=== PATIENT | male | born 1950 | race Caucasian/White ===

== ENCOUNTER 2017-11-06 03:56 | Inpatient (IN) | payer OTHER ==
[2017-11-06] MEDS: ONDANSETRON 4 MG INJ IV (04:52)
[2017-11-06] MEDS: morphine 4 MG/ML VIAL IV (04:52)
[2017-11-06] MEDS: SOD CHLORIDE 0.9% 1,000 ML IV (04:53)
[2017-11-06 04:57] LABS: WHITE BLOOD COUNT 13.5 10^3/ul (4.8-10.8)
[2017-11-06 04:57] LABS: HEMATOCRIT 25.7 % (42.0-52.0); HEMOGLOBIN 8.1 g/dl (14.0-18.0); IMMATURE GRANS #M 0.06 10^3/ul; IMMATURE GRANS % (M) 0.4 %; MEAN CORPUSCULAR HGB CONC 31.5 g/dl (32.0-37.0); MEAN CORPUSCULAR VOLUME 82.6 fl (82.0-101.0); MEAN PLATELET VOLUME 9.3 fl (7.4-10.4); PLATELET COUNT 656 10^3/UL (140-415); RED BLOOD COUNT 3.11 10^6/ul (4.70-6.10); RED CELL DISTRIBUTION WIDTH 16.6 % (11.5-14.5)
[2017-11-06 05:17] LABS: INR 0.99; PROTIME 13.2 Sec (11.9-14.9)
[2017-11-06 05:18] LABS: PARTIAL THROMBOPLASTIN TIME 36.2 Sec (25.0-35.0)
[2017-11-06 05:26] LABS: ADD MAN DIFF? YES
[2017-11-06 05:27] LABS: ALANINE AMINOTRANSFERASE 30 IU/L (13-69); ALBUMIN 3.6 g/dl (3.3-4.9); ALBUMIN/GLOBULIN RATIO 0.75; ALKALINE PHOSPHATASE 247 IU/L (42-121); ANION GAP 16 (8-16); ASPARTATE AMINO TRANSFERASE 48 IU/L (15-46); BLOOD UREA NITROGEN 11 mg/dl (7-20); CALCIUM 8.8 mg/dl (8.4-10.2); CARBON DIOXIDE 27 mmol/L (21-31); CHLORIDE 99 mmol/L (97-110); CREATININE 0.81 mg/dl (0.61-1.24); GLUCOSE 115 mg/dl (70-220); LIPASE 121 U/L (23-300); POTASSIUM 4.7 mmol/L (3.5-5.1); SODIUM 137 mmol/L (135-144); TOTAL PROTEIN 8.4 g/dl (6.1-8.1)
[2017-11-06 05:57] LABS: ADD UMIC NO; UR ASCORBIC ACID NEGATIVE (NEGATIVE); UR BILIRUBIN (Dip) NEGATIVE (NEGATIVE); UR BLOOD (Dip) NEGATIVE (NEGATIVE); UR CLARITY CLEAR (CLEAR); UR COLOR STRAW (YELLOW); UR GLUCOSE (Dip) NEGATIVE (NEGATIVE); UR KETONES (Dip) NEGATIVE (NEGATIVE); UR LEUKOCYTE ESTERASE (Dip) NEGATIVE Leu/ul (NEGATIVE); UR NITRITE (Dip) NEGATIVE (NEGATIVE); UR SPECIFIC GRAVITY (Dip) 1.006 (1.003-1.030); UR TOTAL PROTEIN (Dip) NEGATIVE (NEGATIVE); UR UROBILINOGEN (Dip) NEGATIVE (NEGATIVE)
[2017-11-06] MEDS ORDERED: ONDANSETRON 4 MG INJ IV ×2 (07:30→12:00)
[2017-11-06] MEDS ORDERED: ACETAMINOPHEN 325 MG TAB PO (07:30)
[2017-11-06] MEDS: PANTOPRAZOLE 40 MG INJ IV ×2 (10:30→10:32)
[2017-11-06 11:29] LABS: IRON 32 ug/dl (35-150)
[2017-11-06 11:38] LABS: % IRON SATURATION 8 % SAT (22-52); TOTAL IRON BINDING CAPACITY 399 ug/dl (241-421)
[2017-11-06] MEDS ORDERED: NACL 0.9% 3 ML SYG IV (12:00)
[2017-11-06 12:02] LABS: FERRITIN 61.8 ng/ml (11.1-264.0)
[2017-11-06] MEDS ORDERED: GLUCAGON 1 MG INJ IM (12:30)
[2017-11-06] MEDS ORDERED: DEXTROSE 50% 50 ML SYRINGE IV ×2 (12:30)
[2017-11-06] MEDS ORDERED: GLUCOSE GEL 15 GRAM TUBE PO ×2 (12:30)
[2017-11-06] MEDS ORDERED: GLUCOSE GEL 15 GRAM TUBE BUCCAL (12:30)
[2017-11-06 12:34] LABS: FOLATE 7.3 ng/ml (2.8-20.0)
[2017-11-06] MEDS: IOHEXOL 300MG/ML 150 ML BTL (12:59)
[2017-11-06] MEDS: SOD CHLORIDE 0.9% 100 ML (12:59)
[2017-11-06] MEDS: INSULIN ASPART [NOVOLOG] 3 ML PEN SC ×3 (13:21→21:00)
[2017-11-06] MEDS: AMLODIPINE 5 MG TAB PO (15:03)
[2017-11-06 15:35] LABS: CARCINOEMBRYONIC ANTIGEN 4.4 ng/ml (0.0-5.0)
[2017-11-06] MEDS: SOD FERRIC GLUC COMPLX 125 MG in SOD CHLORIDE 0.9% 100 ML IVPB (17:12)
[2017-11-06] MEDS: BISACODYL (EC) 5 MG TAB PO (21:16)
[2017-11-06] MEDS: POLYETHYLENE GLYCOL 3350 119 GM POWDER PO ×2 (21:16→21:26)
[2017-11-06] MEDS: MAGNESIUM CITRATE 300 ML BTL PO (21:16)
[2017-11-07] MEDS: ACCU-CHEK XX ×2 (02:00→20:32)
[2017-11-07 05:48] LABS: ADD MAN DIFF? NO
[2017-11-07 05:57] LABS: WHITE BLOOD COUNT 15.3 10^3/ul (4.8-10.8)
[2017-11-07 05:57] LABS: BASOPHIL # 0.1 10^3/ul (0.0-0.1); BASOPHILS % 0.6 % (0.0-2.0); EOSINOPHILS % 6.3 % (0.0-7.0); HEMATOCRIT 28.4 % (42.0-52.0); HEMOGLOBIN 8.9 g/dl (14.0-18.0); IMMATURE GRANS #M 0.07 10^3/ul; IMMATURE GRANS % (M) 0.5 %; LYMPHOCYTES # 2.3 10^3/ul (0.8-2.9); LYMPHOCYTES % 14.7 % (15.0-51.0); MEAN CORPUSCULAR HEMOGLOBIN 25.9 pg (29.0-33.0); MEAN CORPUSCULAR HGB CONC 31.3 g/dl (32.0-37.0); MEAN CORPUSCULAR VOLUME 82.6 fl (82.0-101.0); MEAN PLATELET VOLUME 9.8 fl (7.4-10.4); MONOCYTE # 0.9 10^3/ul (0.3-0.9); MONOCYTES % 6.1 % (0.0-11.0); NEUTROPHILS % 71.8 % (39.0-77.0); RED BLOOD COUNT 3.44 10^6/ul (4.70-6.10); RED CELL DISTRIBUTION WIDTH 16.4 % (11.5-14.5)
[2017-11-07] MEDS: PANTOPRAZOLE (EC) 40 MG TAB PO ×2 (06:02→17:10)
[2017-11-07 06:07] LABS: HEMOGLOBIN A1C 6.1 % (0-5.9)
[2017-11-07 06:08] LABS: PLATELET COUNT 741 10^3/UL (140-415)
[2017-11-07 06:25] LABS: ALANINE AMINOTRANSFERASE 29 IU/L (13-69); ALBUMIN 3.5 g/dl (3.3-4.9); ALBUMIN/GLOBULIN RATIO 0.76; ALKALINE PHOSPHATASE 249 IU/L (42-121); ANION GAP 13 (8-16); ASPARTATE AMINO TRANSFERASE 52 IU/L (15-46); BILIRUBIN,INDIRECT 0.1 mg/dl (0-1.1); BILIRUBIN,TOTAL 0.1 mg/dl (0.2-1.3); BLOOD UREA NITROGEN 7 mg/dl (7-20); CARBON DIOXIDE 29 mmol/L (21-31); CHLORIDE 96 mmol/L (97-110); CHOL/HDL RATIO 7.5 RATIO; CHOLESTEROL 143 mg/dl (100-200); CREATININE 0.71 mg/dl (0.61-1.24); GLUCOSE 110 mg/dl (70-220); HDL CHOLESTEROL 19 mg/dl (31-75); LDL CHOLESTEROL,CALCULATED 85 mg/dl; MAGNESIUM 2.1 mg/dl (1.7-2.5); PHOSPHORUS 4.7 mg/dl (2.5-4.9); POTASSIUM 4.1 mmol/L (3.5-5.1); SODIUM 134 mmol/L (135-144); TOTAL PROTEIN 8.1 g/dl (6.1-8.1); TRIGLYCERIDES 193 mg/dl (0-149)
[2017-11-07] MEDS ORDERED: PROPOFOL 200 MG INJ (07:00)
[2017-11-07] MEDS: INSULIN ASPART [NOVOLOG] 3 ML PEN SC ×4 (07:24→20:31)
[2017-11-07] MEDS: BISACODYL (EC) 5 MG TAB PO (08:28)
[2017-11-07] MEDS: AMLODIPINE 5 MG TAB PO (08:28)
[2017-11-07 08:46] LABS: OCCULT BLOOD STOOL NEGATIVE (NEGATIVE)
[2017-11-07] MEDS: SOD FERRIC GLUC COMPLX 125 MG in SOD CHLORIDE 0.9% 100 ML IVPB (16:45)
[2017-11-08] MEDS: PANTOPRAZOLE (EC) 40 MG TAB PO ×2 (05:45→18:27)
[2017-11-08 06:52] LABS: ADD MAN DIFF? NO
[2017-11-08 07:06] LABS: WHITE BLOOD COUNT 15.7 10^3/ul (4.8-10.8)
[2017-11-08 07:06] LABS: BASOPHIL # 0.1 10^3/ul (0.0-0.1); BASOPHILS % 0.5 % (0.0-2.0); EOSINOPHILS % 6.2 % (0.0-7.0); HEMATOCRIT 27.7 % (42.0-52.0); HEMOGLOBIN 8.9 g/dl (14.0-18.0); LYMPHOCYTES # 1.8 10^3/ul (0.8-2.9); LYMPHOCYTES % 11.6 % (15.0-51.0); MEAN CORPUSCULAR HEMOGLOBIN 26.1 pg (29.0-33.0); MEAN CORPUSCULAR HGB CONC 32.1 g/dl (32.0-37.0); MEAN CORPUSCULAR VOLUME 81.2 fl (82.0-101.0); MEAN PLATELET VOLUME 9.7 fl (7.4-10.4); MONOCYTE # 0.8 10^3/ul (0.3-0.9); MONOCYTES % 5.2 % (0.0-11.0); NEUTROPHIL # 11.9 10^3/ul (1.6-7.5); NEUTROPHILS % 76.1 % (39.0-77.0); PLATELET COUNT 761 10^3/UL (140-415); RED BLOOD COUNT 3.41 10^6/ul (4.70-6.10); RED CELL DISTRIBUTION WIDTH 16.7 % (11.5-14.5)
[2017-11-08] MEDS: INSULIN ASPART [NOVOLOG] 3 ML PEN SC ×4 (07:35→21:00)
[2017-11-08 07:37] LABS: ANION GAP 16 (8-16); BLOOD UREA NITROGEN 9 mg/dl (7-20); CARBON DIOXIDE 25 mmol/L (21-31); CHLORIDE 99 mmol/L (97-110); CREATININE 0.75 mg/dl (0.61-1.24); GLUCOSE 173 mg/dl (70-220); POTASSIUM 4.1 mmol/L (3.5-5.1); SODIUM 136 mmol/L (135-144)
[2017-11-08] MEDS: AMLODIPINE 5 MG TAB PO (09:00)
[2017-11-08 10:26] LABS: INR 1.01; PROTIME 13.4 Sec (11.9-14.9)
[2017-11-08] MEDS ORDERED: HEPARIN 1000 UNITS/NS (A-LINE) 1,000 ML (13:24)
[2017-11-08] MEDS ORDERED: MIDAZOLAM 1 MG/ML 2 ML INJ (13:24)
[2017-11-08] MEDS ORDERED: LIDOCAINE 1% (MDV) 20 ML INJ (13:24)
[2017-11-08] MEDS ORDERED: FENTAnyl 50 MCG/ML VIAL (13:24)
[2017-11-08] MEDS ORDERED: POLYMYXIN/BACITRACIN 1L IRRIG (13:28)
[2017-11-08] MEDS ORDERED: HEPARIN 1000 UNITS/ML 10 ML INJ (13:58)
[2017-11-08] MEDS ORDERED: SOD CHLORIDE 0.9% 500 ML (13:58)
[2017-11-08] MEDS: ACETAMINOPHEN 325 MG TAB PO ×2 (16:20→22:59)
[2017-11-08] MEDS: SOD FERRIC GLUC COMPLX 125 MG in SOD CHLORIDE 0.9% 100 ML IVPB (17:39)
[2017-11-09] MEDS: ACCU-CHEK XX (02:00)
[2017-11-09] MEDS ORDERED: DIPHENHYDRAMINE 50 MG INJ IV ×3 (06:00→14:30)
[2017-11-09] MEDS ORDERED: DEXTROSE 5% IV ×4 (06:00→14:00)
[2017-11-09] MEDS ORDERED: FLUOROURACIL IV ×3 (06:00→14:00)
[2017-11-09] MEDS ORDERED: ONDANSETRON INJ 16 MG, DEXAMETHASONE 4 MG/ML 10 MG in SOD CHLORIDE 0.9% 50 ML IVPB (06:00)
[2017-11-09] MEDS ORDERED: LEUCOVORIN CALCIUM IV (06:00)
[2017-11-09] MEDS ORDERED: OXALIPLATIN 170 MG in DEXTROSE 5% 250 ML IV (06:00)
[2017-11-09] MEDS: PANTOPRAZOLE (EC) 40 MG TAB PO ×2 (06:43→17:37)
[2017-11-09] MEDS: INSULIN ASPART [NOVOLOG] 3 ML PEN SC ×4 (07:50→20:32)
[2017-11-09] MEDS: SOD CHLORIDE 0.9% 1,000 ML IV ×2 (08:09→16:00)
[2017-11-09] MEDS: AMLODIPINE 5 MG TAB PO (08:23)
[2017-11-09] MEDS: morphine 2 MG INJ IV ×2 (08:23→19:57)
[2017-11-09 09:28] LABS: ADD MAN DIFF? NO
[2017-11-09 09:38] LABS: BASOPHIL # 0.1 10^3/ul (0.0-0.1); BASOPHILS % 0.7 % (0.0-2.0); EOSINOPHILS # 1.1 10^3/ul (0.0-0.5); EOSINOPHILS % 6.4 % (0.0-7.0); HEMATOCRIT 28.1 % (42.0-52.0); HEMOGLOBIN 8.9 g/dl (14.0-18.0); LYMPHOCYTES # 2.2 10^3/ul (0.8-2.9); LYMPHOCYTES % 13.3 % (15.0-51.0); MEAN CORPUSCULAR HEMOGLOBIN 25.8 pg (29.0-33.0); MEAN CORPUSCULAR HGB CONC 31.7 g/dl (32.0-37.0); MEAN CORPUSCULAR VOLUME 81.4 fl (82.0-101.0); MEAN PLATELET VOLUME 9.4 fl (7.4-10.4); MONOCYTE # 0.9 10^3/ul (0.3-0.9); MONOCYTES % 5.3 % (0.0-11.0); NEUTROPHIL # 12.4 10^3/ul (1.6-7.5); NEUTROPHILS % 73.9 % (39.0-77.0); PLATELET COUNT 744 10^3/UL (140-415); RED BLOOD COUNT 3.45 10^6/ul (4.70-6.10); RED CELL DISTRIBUTION WIDTH 16.7 % (11.5-14.5)
[2017-11-09 09:38] LABS: WHITE BLOOD COUNT 16.7 10^3/ul (4.8-10.8)
[2017-11-09] MEDS ORDERED: METHYLPREDNISOLONE 125 MG INJ IV (10:00)
[2017-11-09 10:02] LABS: ALANINE AMINOTRANSFERASE 26 IU/L (13-69); ALBUMIN 3.8 g/dl (3.3-4.9); ALBUMIN/GLOBULIN RATIO 0.79; ALKALINE PHOSPHATASE 211 IU/L (42-121); ANION GAP 16 (8-16); ASPARTATE AMINO TRANSFERASE 63 IU/L (15-46); BILIRUBIN,INDIRECT 0.1 mg/dl (0-1.1); BILIRUBIN,TOTAL 0.1 mg/dl (0.2-1.3); BLOOD UREA NITROGEN 10 mg/dl (7-20); CALCIUM 9.1 mg/dl (8.4-10.2); CARBON DIOXIDE 24 mmol/L (21-31); CHLORIDE 99 mmol/L (97-110); CREATININE 0.84 mg/dl (0.61-1.24); GLUCOSE 113 mg/dl (70-220); POTASSIUM 4.4 mmol/L (3.5-5.1); SODIUM 135 mmol/L (135-144); TOTAL PROTEIN 8.6 g/dl (6.1-8.1)
[2017-11-09] MEDS: ACETAMINOPHEN 325 MG TAB PO (12:14)
[2017-11-09] MEDS ORDERED: ONDANSETRON INJ 16 MG, DEXAMETHASONE 10 MG/ML 10 MG in SOD CHLORIDE 0.9% 50 ML IVPB (14:30)
[2017-11-09] MEDS: ONDANSETRON INJ 16 MG, DEXAMETHASONE 4 MG/ML 10 MG in SOD CHLORIDE 0.9% 50 ML IVPB (16:03)
[2017-11-09] MEDS: DIPHENHYDRAMINE 50 MG INJ IV (16:03)
[2017-11-09] MEDS: OXALIPLATIN 170 MG in DEXTROSE 5% 250 ML IV (16:56)
[2017-11-09] MEDS: SOD FERRIC GLUC COMPLX 125 MG in SOD CHLORIDE 0.9% 100 ML IVPB (19:23)
[2017-11-09] MEDS: DEXTROSE 5% IV ×3 (21:23→23:35)
[2017-11-09] MEDS: LEUCOVORIN CALCIUM IV (21:23)
[2017-11-09] MEDS: FLUOROURACIL IV ×2 (22:49→23:35)
[2017-11-10] MEDS: ACETAMINOPHEN 325 MG TAB PO ×3 (00:35→20:46)
[2017-11-10] MEDS: ACCU-CHEK XX (02:00)
[2017-11-10] MEDS: SOD CHLORIDE 0.9% 1,000 ML IV ×3 (02:00→22:00)
[2017-11-10 05:08] LABS: ADD MAN DIFF? NO
[2017-11-10 05:11] LABS: BASOPHILS % 0.2 % (0.0-2.0); HEMATOCRIT 29.1 % (42.0-52.0); HEMOGLOBIN 9.2 g/dl (14.0-18.0); LYMPHOCYTES # 1.6 10^3/ul (0.8-2.9); MEAN CORPUSCULAR HEMOGLOBIN 25.5 pg (29.0-33.0); MEAN CORPUSCULAR HGB CONC 31.6 g/dl (32.0-37.0); MEAN CORPUSCULAR VOLUME 80.6 fl (82.0-101.0); MEAN PLATELET VOLUME 9.5 fl (7.4-10.4); MONOCYTE # 0.3 10^3/ul (0.3-0.9); MONOCYTES % 1.9 % (0.0-11.0); NEUTROPHIL # 12.9 10^3/ul (1.6-7.5); NEUTROPHILS % 86.2 % (39.0-77.0); PLATELET COUNT 731 10^3/UL (140-415); RED BLOOD COUNT 3.61 10^6/ul (4.70-6.10); RED CELL DISTRIBUTION WIDTH 16.4 % (11.5-14.5)
[2017-11-10 05:49] LABS: ALANINE AMINOTRANSFERASE 21 IU/L (13-69); ALBUMIN 3.8 g/dl (3.3-4.9); ALBUMIN/GLOBULIN RATIO 0.82; ALKALINE PHOSPHATASE 198 IU/L (42-121); ANION GAP 17 (8-16); ASPARTATE AMINO TRANSFERASE 63 IU/L (15-46); BILIRUBIN,INDIRECT 0.1 mg/dl (0-1.1); BILIRUBIN,TOTAL 0.1 mg/dl (0.2-1.3); BLOOD UREA NITROGEN 14 mg/dl (7-20); CALCIUM 9.2 mg/dl (8.4-10.2); CARBON DIOXIDE 25 mmol/L (21-31); CHLORIDE 97 mmol/L (97-110); CREATININE 0.85 mg/dl (0.61-1.24); GLUCOSE 166 mg/dl (70-220); POTASSIUM 4.6 mmol/L (3.5-5.1); SODIUM 134 mmol/L (135-144); TOTAL PROTEIN 8.4 g/dl (6.1-8.1)
[2017-11-10] MEDS: PANTOPRAZOLE (EC) 40 MG TAB PO ×2 (06:10→19:15)
[2017-11-10] MEDS: INSULIN ASPART [NOVOLOG] 3 ML PEN SC ×4 (07:50→20:40)
[2017-11-10] MEDS: AMLODIPINE 5 MG TAB PO (09:41)
[2017-11-10] MEDS: SUCRALFATE 1 GM TAB PO ×3 (12:51→20:41)
[2017-11-10] MEDS ORDERED: ONDANSETRON INJ 16 MG, DEXAMETHASONE 10 MG/ML 10 MG in SOD CHLORIDE 0.9% 50 ML IVPB (14:30)
[2017-11-10] MEDS ORDERED: DIPHENHYDRAMINE 50 MG INJ IV (14:30)
[2017-11-10] MEDS: DOCUSATE SODIUM 100 MG CAP PO (15:49)
[2017-11-10] MEDS: SOD FERRIC GLUC COMPLX 125 MG in SOD CHLORIDE 0.9% 100 ML IVPB (17:27)
[2017-11-10] MEDS: ONDANSETRON INJ 16 MG, DEXAMETHASONE 10 MG/ML 10 MG in SOD CHLORIDE 0.9% 50 ML IVPB (23:05)
[2017-11-10] MEDS: DIPHENHYDRAMINE 50 MG INJ IV (23:28)
[2017-11-11] MEDS: DEXTROSE 5% IV (00:06)
[2017-11-11] MEDS: FLUOROURACIL IV (00:06)
[2017-11-11] MEDS: ACCU-CHEK XX (02:00)
[2017-11-11 05:18] LABS: ADD MAN DIFF? NO
[2017-11-11 05:28] LABS: WHITE BLOOD COUNT 18.7 10^3/ul (4.8-10.8)
[2017-11-11 05:28] LABS: BASOPHILS % 0.2 % (0.0-2.0); HEMATOCRIT 29.9 % (42.0-52.0); HEMOGLOBIN 9.5 g/dl (14.0-18.0); LYMPHOCYTES % 5.6 % (15.0-51.0); MEAN CORPUSCULAR HEMOGLOBIN 25.3 pg (29.0-33.0); MEAN CORPUSCULAR HGB CONC 31.8 g/dl (32.0-37.0); MEAN CORPUSCULAR VOLUME 79.7 fl (82.0-101.0); MEAN PLATELET VOLUME 9.6 fl (7.4-10.4); MONOCYTE # 0.1 10^3/ul (0.3-0.9); MONOCYTES % 0.6 % (0.0-11.0); NEUTROPHIL # 17.3 10^3/ul (1.6-7.5); NEUTROPHILS % 92.9 % (39.0-77.0); PLATELET COUNT 719 10^3/UL (140-415); RED BLOOD COUNT 3.75 10^6/ul (4.70-6.10); RED CELL DISTRIBUTION WIDTH 16.9 % (11.5-14.5)
[2017-11-11] MEDS: PANTOPRAZOLE (EC) 40 MG TAB PO ×2 (05:42→05:47)
[2017-11-11 05:58] LABS: ALANINE AMINOTRANSFERASE 26 IU/L (13-69); ALBUMIN 3.7 g/dl (3.3-4.9); ALBUMIN/GLOBULIN RATIO 0.78; ALKALINE PHOSPHATASE 194 IU/L (42-121); ANION GAP 15 (8-16); ASPARTATE AMINO TRANSFERASE 64 IU/L (15-46); BILIRUBIN,INDIRECT 0.2 mg/dl (0-1.1); BILIRUBIN,TOTAL 0.2 mg/dl (0.2-1.3); BLOOD UREA NITROGEN 17 mg/dl (7-20); CALCIUM 9.1 mg/dl (8.4-10.2); CARBON DIOXIDE 25 mmol/L (21-31); CHLORIDE 97 mmol/L (97-110); CREATININE 0.78 mg/dl (0.61-1.24); GLUCOSE 211 mg/dl (70-220); POTASSIUM 4.6 mmol/L (3.5-5.1); SODIUM 132 mmol/L (135-144); TOTAL PROTEIN 8.4 g/dl (6.1-8.1)
[2017-11-11] MEDS: AMLODIPINE 5 MG TAB PO (08:54)
[2017-11-11] MEDS: SUCRALFATE 1 GM TAB PO ×4 (08:54→20:37)
[2017-11-11] MEDS: SOD CHLORIDE 0.9% 1,000 ML IV ×2 (08:55→20:40)
[2017-11-11] MEDS: INSULIN ASPART [NOVOLOG] 3 ML PEN SC ×4 (08:58→20:38)
[2017-11-11] MEDS: morphine 2 MG INJ IV (22:03)
[2017-11-12] MEDS: ACCU-CHEK XX (02:00)
[2017-11-12] MEDS: SOD CHLORIDE 0.9% 1,000 ML IV ×3 (04:00→19:23)
[2017-11-12 05:22] LABS: ADD MAN DIFF? NO
[2017-11-12 05:25] LABS: BASOPHILS % 0.2 % (0.0-2.0); EOSINOPHILS # 0.1 10^3/ul (0.0-0.5); EOSINOPHILS % 0.3 % (0.0-7.0); HEMATOCRIT 29.1 % (42.0-52.0); HEMOGLOBIN 9.4 g/dl (14.0-18.0); LYMPHOCYTES # 2.2 10^3/ul (0.8-2.9); LYMPHOCYTES % 11.9 % (15.0-51.0); MEAN CORPUSCULAR HEMOGLOBIN 25.9 pg (29.0-33.0); MEAN CORPUSCULAR HGB CONC 32.3 g/dl (32.0-37.0); MEAN CORPUSCULAR VOLUME 80.2 fl (82.0-101.0); MEAN PLATELET VOLUME 9.6 fl (7.4-10.4); MONOCYTE # 0.7 10^3/ul (0.3-0.9); MONOCYTES % 3.7 % (0.0-11.0); NEUTROPHIL # 15.2 10^3/ul (1.6-7.5); NEUTROPHILS % 83.4 % (39.0-77.0); PLATELET COUNT 647 10^3/UL (140-415); RED BLOOD COUNT 3.63 10^6/ul (4.70-6.10)
[2017-11-12 05:25] LABS: WHITE BLOOD COUNT 18.2 10^3/ul (4.8-10.8)
[2017-11-12] MEDS: PANTOPRAZOLE (EC) 40 MG TAB PO ×2 (05:29→17:23)
[2017-11-12 05:43] LABS: ALANINE AMINOTRANSFERASE 24 IU/L (13-69); ALBUMIN 3.4 g/dl (3.3-4.9); ALBUMIN/GLOBULIN RATIO 0.75; ALKALINE PHOSPHATASE 156 IU/L (42-121); ANION GAP 13 (8-16); ASPARTATE AMINO TRANSFERASE 56 IU/L (15-46); BILIRUBIN,INDIRECT 0.2 mg/dl (0-1.1); BILIRUBIN,TOTAL 0.2 mg/dl (0.2-1.3); BLOOD UREA NITROGEN 18 mg/dl (7-20); CALCIUM 8.8 mg/dl (8.4-10.2); CARBON DIOXIDE 25 mmol/L (21-31); CHLORIDE 99 mmol/L (97-110); CREATININE 0.72 mg/dl (0.61-1.24); GLUCOSE 134 mg/dl (70-220); POTASSIUM 3.9 mmol/L (3.5-5.1); SODIUM 133 mmol/L (135-144); TOTAL PROTEIN 7.9 g/dl (6.1-8.1)
[2017-11-12] MEDS: INSULIN ASPART [NOVOLOG] 3 ML PEN SC ×4 (07:50→20:40)
[2017-11-12] MEDS: SUCRALFATE 1 GM TAB PO ×4 (09:18→20:39)
[2017-11-12] MEDS: AMLODIPINE 5 MG TAB PO (09:18)
[2017-11-12] MEDS ORDERED: morphine LIQ (10 MG/5 ML) CUP PO (15:00)
[2017-11-12] MEDS: ACETAMINOPHEN 325 MG TAB PO (20:44)
[2017-11-13] MEDS: ACCU-CHEK XX (02:00)
[2017-11-13 05:37] LABS: WHITE BLOOD COUNT 13.3 10^3/ul (4.8-10.8)
[2017-11-13 05:37] LABS: ADD MAN DIFF? NO; BASOPHIL # 0.1 10^3/ul (0.0-0.1); BASOPHILS % 0.6 % (0.0-2.0); EOSINOPHILS # 0.3 10^3/ul (0.0-0.5); EOSINOPHILS % 1.9 % (0.0-7.0); HEMATOCRIT 28.4 % (42.0-52.0); HEMOGLOBIN 8.9 g/dl (14.0-18.0); LYMPHOCYTES # 2.5 10^3/ul (0.8-2.9); LYMPHOCYTES % 18.4 % (15.0-51.0); MEAN CORPUSCULAR HEMOGLOBIN 25.3 pg (29.0-33.0); MEAN CORPUSCULAR HGB CONC 31.3 g/dl (32.0-37.0); MEAN CORPUSCULAR VOLUME 80.7 fl (82.0-101.0); MEAN PLATELET VOLUME 9.8 fl (7.4-10.4); MONOCYTE # 0.5 10^3/ul (0.3-0.9); MONOCYTES % 3.8 % (0.0-11.0); NEUTROPHIL # 9.9 10^3/ul (1.6-7.5); NEUTROPHILS % 74.7 % (39.0-77.0); PLATELET COUNT 566 10^3/UL (140-415); RED BLOOD COUNT 3.52 10^6/ul (4.70-6.10); RED CELL DISTRIBUTION WIDTH 17.5 % (11.5-14.5)
[2017-11-13] MEDS: SOD CHLORIDE 0.9% 1,000 ML IV (05:46)
[2017-11-13] MEDS: PANTOPRAZOLE (EC) 40 MG TAB PO (05:46)
[2017-11-13 05:47] LABS: ALANINE AMINOTRANSFERASE 27 IU/L (13-69); ALBUMIN 3.4 g/dl (3.3-4.9); ALBUMIN/GLOBULIN RATIO 0.77; ALKALINE PHOSPHATASE 147 IU/L (42-121); ANION GAP 13 (8-16); ASPARTATE AMINO TRANSFERASE 52 IU/L (15-46); BILIRUBIN,INDIRECT 0.1 mg/dl (0-1.1); BILIRUBIN,TOTAL 0.1 mg/dl (0.2-1.3); BLOOD UREA NITROGEN 18 mg/dl (7-20); CALCIUM 8.6 mg/dl (8.4-10.2); CARBON DIOXIDE 25 mmol/L (21-31); CHLORIDE 100 mmol/L (97-110); GLUCOSE 112 mg/dl (70-220); SODIUM 134 mmol/L (135-144); TOTAL PROTEIN 7.8 g/dl (6.1-8.1)
[2017-11-13] MEDS: ACETAMINOPHEN 325 MG TAB PO (07:41)
[2017-11-13] MEDS: AMLODIPINE 5 MG TAB PO (09:00)
[2017-11-13] MEDS: SUCRALFATE 1 GM TAB PO ×3 (09:23→17:00)
[2017-11-13] MEDS: INSULIN ASPART [NOVOLOG] 3 ML PEN SC ×2 (09:23→12:58)
== END 2017-11-13 17:20 | disposition home or self-care (01) | DRG 375 ==
LOC: E/R 03:56 → MS1 11-08 16:05 → MS3 07:30
PROVIDERS: Internal Medicine
PROC: 0JH60WZ Insertion of Totally Implantable Vascular Access Device into Chest Subcutaneous Tissue and Fascia, Open Approach (ICD-10-PCS; principal; 2017-11-07 12:28)
PROC: 02HV33Z Insertion of Infusion Device into Superior Vena Cava, Percutaneous Approach (ICD-10-PCS; 2017-11-07 12:28)
PROC: B518YZA Fluoroscopy of Superior Vena Cava using Other Contrast, Guidance (ICD-10-PCS; 2017-11-07 12:28)
PROC: 0DJD8ZZ Inspection of Lower Intestinal Tract, Via Natural or Artificial Opening Endoscopic (ICD-10-PCS; 2017-11-07 12:28)
PROC: 3E04305 Introduction of Other Antineoplastic into Central Vein, Percutaneous Approach (ICD-10-PCS; 2017-11-07 12:28)
DX: C16.9 Malignant neoplasm of stomach, unspecified (principal); K92.1 Melena; D50.9 Iron deficiency anemia, unspecified; D72.829 Elevated white blood cell count, unspecified; E11.9 Type 2 diabetes mellitus without complications; E66.9 Obesity, unspecified; I10 Essential (primary) hypertension; K64.8 Other hemorrhoids; K57.30 Diverticulosis of large intestine without perforation or abscess without bleeding; Z68.31 Body mass index [BMI] 31.0-31.9, adult; Z79.84 Long term (current) use of oral hypoglycemic drugs
CPT/HCPCS: 36415; 71260; 74176; 80048; 80053; 80061; 81003; 82270; 82378; 82607; 82728; 82746; 82962; 83036; 83540; 83690; 83735; 84100; 84443; 85025; 85610; 85730; 86850; 86900; 86901; 88305; 93306; 96361; 96374; 96375; 99285-25; J9190

== ENCOUNTER 2018-02-23 17:15 | Inpatient (IN) | payer OTHER ==
[2018-02-23 20:12] LABS: ADD MAN DIFF? NO
[2018-02-23 20:13] LABS: WHITE BLOOD COUNT 10.2 10^3/ul (4.8-10.8)
[2018-02-23 20:13] LABS: ABNORMAL IP MESSAGE 1; BASOPHILS % 0.1 % (0.0-2.0); HEMATOCRIT 18.5 % (42.0-52.0); LYMPHOCYTES # 1.4 10^3/ul (0.8-2.9); MEAN CORPUSCULAR HEMOGLOBIN 27.1 pg (29.0-33.0); MEAN CORPUSCULAR HGB CONC 31.9 g/dl (32.0-37.0); MEAN CORPUSCULAR VOLUME 84.9 fl (82.0-101.0); MEAN PLATELET VOLUME 9.9 fl (7.4-10.4); MONOCYTE # 0.3 10^3/ul (0.3-0.9); MONOCYTES % 2.9 % (0.0-11.0); NEUTROPHIL # 8.4 10^3/ul (1.6-7.5); NEUTROPHILS % 82.3 % (39.0-77.0); PLATELET COUNT 263 10^3/UL (140-415); POSITIVE DIFF @See below; RED BLOOD COUNT 2.18 10^6/ul (4.70-6.10); RED CELL DISTRIBUTION WIDTH 22.5 % (11.5-14.5)
[2018-02-23] MEDS: ONDANSETRON 4 MG INJ IV (20:19)
[2018-02-23] MEDS: SODIUM CHLORIDE 0.9% 1L BAG IV* (20:19)
[2018-02-23] MEDS: morphine 4 MG/ML VIAL IV (20:19)
[2018-02-23 20:25] LABS: HEMOGLOBIN 5.9 g/dl (14.0-18.0)
[2018-02-23 20:30] LABS: INR 1.09; PROTIME 14.3 Sec (11.9-14.9); PT RATIO 1.1
[2018-02-23 20:31] LABS: ALANINE AMINOTRANSFERASE 21 IU/L (13-69); ALBUMIN 2.9 g/dl (3.3-4.9); ALKALINE PHOSPHATASE 164 IU/L (42-121); AMYLASE 43 U/L (11-123); ANION GAP 11 (5-13); ASPARTATE AMINO TRANSFERASE 152 IU/L (15-46); BILIRUBIN,INDIRECT 0.1 mg/dl (0-1.1); BILIRUBIN,TOTAL 0.1 mg/dl (0.2-1.3); BLOOD UREA NITROGEN 68 mg/dl (7-20); CALCIUM 8.1 mg/dl (8.4-10.2); CARBON DIOXIDE 24 mmol/L (21-31); CHLORIDE 93 mmol/L (97-110); CREATININE 0.69 mg/dl (0.61-1.24); Estimated GFR > 60 mL/min (>60); GLUCOSE 168 mg/dl (70-220); LIPASE 51 U/L (23-300); POTASSIUM 5.1 mmol/L (3.5-5.1); SODIUM 128 mmol/L (135-144); TOTAL PROTEIN 6.1 g/dl (6.1-8.1)
[2018-02-23 20:33] LABS: LACTIC ACID 4.6 mmol/L (0.5-2.0)
[2018-02-23 20:42] LABS: TROPONIN-I < 0.012 ng/ml (0.000-0.120)
[2018-02-23] MEDS ORDERED: PANTOPRAZOLE IV 80 MG in SOD CHLORIDE 0.9% 100 ML IVPB (20:42)
[2018-02-23 20:44] LABS: PARTIAL THROMBOPLASTIN TIME 34.5 Sec (23.0-35.0)
[2018-02-23 20:59] LABS: ADD UMIC NO; UR ASCORBIC ACID NEGATIVE (NEGATIVE); UR BILIRUBIN (Dip) NEGATIVE (NEGATIVE); UR BLOOD (Dip) NEGATIVE (NEGATIVE); UR CLARITY CLEAR (CLEAR); UR COLOR YELLOW (YELLOW); UR GLUCOSE (Dip) NEGATIVE (NEGATIVE); UR KETONES (Dip) NEGATIVE (NEGATIVE); UR LEUKOCYTE ESTERASE (Dip) NEGATIVE Leu/ul (NEGATIVE); UR NITRITE (Dip) NEGATIVE (NEGATIVE); UR SPECIFIC GRAVITY (Dip) 1.016 (1.003-1.030); UR TOTAL PROTEIN (Dip) NEGATIVE (NEGATIVE); UR UROBILINOGEN (Dip) NEGATIVE (NEGATIVE)
[2018-02-23] MEDS: PANTOPRAZOLE 40 MG INJ IV (21:14)
[2018-02-23] MEDS: CEFEPIME 2GM/50 ML (PMX) 50 ML IVPB (21:14)
[2018-02-23] MEDS: IODIXANOL LOCM 100 ML BTL (21:33)
[2018-02-23] MEDS: SOD CHLORIDE 0.9% 100 ML (21:33)
[2018-02-23 21:59] LABS: LACTIC ACID 3.8 mmol/L (0.5-2.0)
[2018-02-23] MEDS: VANCOMYCIN 1 GM (PMX) 250 ML IVPB (22:27)
[2018-02-23] MEDS: PANTOPRAZOLE IV 80 MG in SOD CHLORIDE 0.9% 100 ML IV (22:27)
[2018-02-23] MEDS ORDERED: ACETAMINOPHEN 325 MG TAB PO (22:30)
[2018-02-23] MEDS ORDERED: ONDANSETRON 4 MG INJ IV (22:30)
[2018-02-24] MEDS ORDERED: VANCOMYCIN IV PER PHARMACY XX (00:30)
[2018-02-24] MEDS: ACETAMINOPHEN 325 MG TAB PO (03:28)
[2018-02-24] MEDS: SOD CHLORIDE 0.9% 1,000 ML IV ×2 (04:35→23:40)
[2018-02-24 04:38] LABS: IMMEDIATE SPIN CROSSMATCH 1 3
[2018-02-24] MEDS: PANTOPRAZOLE 40 MG INJ IV (06:00)
[2018-02-24] MEDS: PIPER-TAZO 3.375 GM IV (PMX) 100 ML IVPB ×4 (06:09→23:40)
[2018-02-24 08:22] LABS: ADD MAN DIFF? NO
[2018-02-24 08:27] LABS: WHITE BLOOD COUNT 8.4 10^3/ul (4.8-10.8)
[2018-02-24 08:27] LABS: BASOPHILS % 0.5 % (0.0-2.0); EOSINOPHILS % 0.2 % (0.0-7.0); HEMATOCRIT 21.8 % (42.0-52.0); HEMOGLOBIN 7.5 g/dl (14.0-18.0); LYMPHOCYTES # 1.7 10^3/ul (0.8-2.9); LYMPHOCYTES % 19.7 % (15.0-51.0); MEAN CORPUSCULAR HEMOGLOBIN 28.8 pg (29.0-33.0); MEAN CORPUSCULAR HGB CONC 34.4 g/dl (32.0-37.0); MEAN CORPUSCULAR VOLUME 83.8 fl (82.0-101.0); MEAN PLATELET VOLUME 9.5 fl (7.4-10.4); MONOCYTE # 0.3 10^3/ul (0.3-0.9); MONOCYTES % 4.1 % (0.0-11.0); NEUTROPHIL # 6.3 10^3/ul (1.6-7.5); NEUTROPHILS % 74.9 % (39.0-77.0); PLATELET COUNT 190 10^3/UL (140-415); RED CELL DISTRIBUTION WIDTH 18.7 % (11.5-14.5)
[2018-02-24 08:45] LABS: ANION GAP 3 (5-13); BLOOD UREA NITROGEN 43 mg/dl (7-20); CALCIUM 7.9 mg/dl (8.4-10.2); CARBON DIOXIDE 28 mmol/L (21-31); CHLORIDE 102 mmol/L (97-110); CREATININE 0.53 mg/dl (0.61-1.24); Estimated GFR > 60 mL/min (>60); GLUCOSE 123 mg/dl (70-220); POTASSIUM 4.1 mmol/L (3.5-5.1); SODIUM 133 mmol/L (135-144)
[2018-02-24 09:03] LABS: HEMOGLOBIN A1C 6.1 % (0-5.9)
[2018-02-24] MEDS ORDERED: VANCOMYCIN 1 GM 250 ML IVPB (10:00)
[2018-02-24] MEDS: VANCOMYCIN 1 GM 250 ML IVPB ×2 (10:42→20:49)
[2018-02-24] MEDS: SUCRALFATE 1 GM TAB PO ×4 (10:43→20:48)
[2018-02-24 10:51] LABS: IRON 85 ug/dl (35-150)
[2018-02-24 11:01] LABS: % IRON SATURATION 27 % SAT (22-52); TOTAL IRON BINDING CAPACITY 313 ug/dl (241-421)
[2018-02-24 11:24] LABS: ADD MAN DIFF? NO
[2018-02-24 11:28] LABS: WHITE BLOOD COUNT 7.7 10^3/ul (4.8-10.8)
[2018-02-24 11:28] LABS: BASOPHIL # 0.1 10^3/ul (0.0-0.1); BASOPHILS % 0.7 % (0.0-2.0); EOSINOPHILS % 0.3 % (0.0-7.0); HEMATOCRIT 21.6 % (42.0-52.0); HEMOGLOBIN 7.2 g/dl (14.0-18.0); LYMPHOCYTES # 1.1 10^3/ul (0.8-2.9); LYMPHOCYTES % 14.6 % (15.0-51.0); MEAN CORPUSCULAR HGB CONC 33.3 g/dl (32.0-37.0); MEAN PLATELET VOLUME 9.9 fl (7.4-10.4); MONOCYTE # 0.3 10^3/ul (0.3-0.9); MONOCYTES % 3.8 % (0.0-11.0); NEUTROPHIL # 6.2 10^3/ul (1.6-7.5); NEUTROPHILS % 80.1 % (39.0-77.0); NUCLEATED RED BLOOD CELLS% 0.3 /100WBC (0.0-0.0); PLATELET COUNT 187 10^3/UL (140-415); RED BLOOD COUNT 2.57 10^6/ul (4.70-6.10); RED CELL DISTRIBUTION WIDTH 19.1 % (11.5-14.5)
[2018-02-24] MEDS: HYDROCODONE/APAP (5/325) TAB PO (16:16)
[2018-02-24 17:06] LABS: ADD MAN DIFF? NO
[2018-02-24 17:07] LABS: BASOPHILS % 0.5 % (0.0-2.0); EOSINOPHILS % 0.2 % (0.0-7.0); HEMATOCRIT 23.6 % (42.0-52.0); LYMPHOCYTES # 1.4 10^3/ul (0.8-2.9); LYMPHOCYTES % 16.4 % (15.0-51.0); MEAN CORPUSCULAR HEMOGLOBIN 28.4 pg (29.0-33.0); MEAN CORPUSCULAR HGB CONC 33.9 g/dl (32.0-37.0); MEAN CORPUSCULAR VOLUME 83.7 fl (82.0-101.0); MONOCYTE # 0.4 10^3/ul (0.3-0.9); MONOCYTES % 4.9 % (0.0-11.0); NEUTROPHIL # 6.5 10^3/ul (1.6-7.5); NEUTROPHILS % 77.1 % (39.0-77.0); NUCLEATED RED BLOOD CELLS% 0.2 /100WBC (0.0-0.0); PLATELET COUNT 192 10^3/UL (140-415); RED BLOOD COUNT 2.82 10^6/ul (4.70-6.10); RED CELL DISTRIBUTION WIDTH 18.9 % (11.5-14.5)
[2018-02-24 17:07] LABS: WHITE BLOOD COUNT 8.4 10^3/ul (4.8-10.8)
[2018-02-24 22:36] LABS: ADD MAN DIFF? NO
[2018-02-24 22:41] LABS: BASOPHIL # 0.1 10^3/ul (0.0-0.1); BASOPHILS % 0.6 % (0.0-2.0); EOSINOPHILS % 0.4 % (0.0-7.0); HEMATOCRIT 22.3 % (42.0-52.0); HEMOGLOBIN 7.4 g/dl (14.0-18.0); LYMPHOCYTES # 1.9 10^3/ul (0.8-2.9); LYMPHOCYTES % 22.5 % (15.0-51.0); MEAN CORPUSCULAR HGB CONC 33.2 g/dl (32.0-37.0); MEAN CORPUSCULAR VOLUME 84.5 fl (82.0-101.0); MEAN PLATELET VOLUME 9.3 fl (7.4-10.4); MONOCYTE # 0.5 10^3/ul (0.3-0.9); MONOCYTES % 5.7 % (0.0-11.0); NEUTROPHIL # 5.8 10^3/ul (1.6-7.5); NEUTROPHILS % 69.9 % (39.0-77.0); PLATELET COUNT 169 10^3/UL (140-415); RED BLOOD COUNT 2.64 10^6/ul (4.70-6.10); RED CELL DISTRIBUTION WIDTH 19.5 % (11.5-14.5)
[2018-02-24 22:41] LABS: WHITE BLOOD COUNT 8.2 10^3/ul (4.8-10.8)
[2018-02-25] MEDS: PANTOPRAZOLE 40 MG INJ IV (05:24)
[2018-02-25] MEDS: PIPER-TAZO 3.375 GM IV (PMX) 100 ML IVPB ×3 (05:25→17:48)
[2018-02-25] MEDS: SUCRALFATE 1 GM TAB PO ×4 (08:16→20:04)
[2018-02-25 08:32] LABS: ADD MAN DIFF? NO
[2018-02-25 08:34] LABS: WHITE BLOOD COUNT 6.7 10^3/ul (4.8-10.8)
[2018-02-25 08:35] LABS: BASOPHIL # 0.1 10^3/ul (0.0-0.1); EOSINOPHILS % 0.6 % (0.0-7.0); HEMATOCRIT 20.9 % (42.0-52.0); HEMOGLOBIN 7.2 g/dl (14.0-18.0); LYMPHOCYTES # 1.5 10^3/ul (0.8-2.9); LYMPHOCYTES % 22.8 % (15.0-51.0); MEAN CORPUSCULAR HEMOGLOBIN 28.7 pg (29.0-33.0); MEAN CORPUSCULAR HGB CONC 34.4 g/dl (32.0-37.0); MEAN CORPUSCULAR VOLUME 83.3 fl (82.0-101.0); MEAN PLATELET VOLUME 9.7 fl (7.4-10.4); MONOCYTE # 0.4 10^3/ul (0.3-0.9); NEUTROPHIL # 4.6 10^3/ul (1.6-7.5); NEUTROPHILS % 68.9 % (39.0-77.0); PLATELET COUNT 161 10^3/UL (140-415); RED BLOOD COUNT 2.51 10^6/ul (4.70-6.10); RED CELL DISTRIBUTION WIDTH 19.4 % (11.5-14.5)
[2018-02-25 08:56] LABS: ALBUMIN 2.8 g/dl (3.3-4.9); ANION GAP 5 (5-13); BLOOD UREA NITROGEN 14 mg/dl (7-20); CARBON DIOXIDE 28 mmol/L (21-31); CHLORIDE 99 mmol/L (97-110); CREATININE 0.46 mg/dl (0.61-1.24); GLUCOSE 121 mg/dl (70-220); PHOSPHORUS 2.7 mg/dl (2.5-4.9); POTASSIUM 3.4 mmol/L (3.5-5.1); SODIUM 132 mmol/L (135-144)
[2018-02-25 09:11] LABS: MAGNESIUM 1.6 mg/dl (1.7-2.5); VANCOMYCIN,TROUGH 7.5 ug/ml (10.0-20.0)
[2018-02-25] MEDS: VANCOMYCIN 1 GM 250 ML IVPB (09:15)
[2018-02-25] MEDS: NYSTATIN SUSP 5 ML CUP PO ×3 (13:00→20:04)
[2018-02-25] MEDS: MAGNESIUM OXIDE 400 MG TAB PO (14:58)
[2018-02-25] MEDS: POTASSIUM CHLORIDE (SR) 20 MEQ TAB PO (14:59)
[2018-02-25] MEDS: FLUCONAZOLE 200 MG (PMX) 100 ML IVPB (15:22)
[2018-02-25] MEDS: SOD CHLORIDE 0.9% 1,000 ML IV (15:23)
[2018-02-25] MEDS: SOD CHLORIDE 0.9% 250 ML IV* (15:23)
[2018-02-25] MEDS: VANCOMYCIN 1.5 GM in SOD CHLORIDE 0.9% 250 ML IVPB (20:07)
[2018-02-26 05:21] LABS: ADD MAN DIFF? NO
[2018-02-26 05:24] LABS: WHITE BLOOD COUNT 6.4 10^3/ul (4.8-10.8)
[2018-02-26 05:24] LABS: BASOPHIL # 0.1 10^3/ul (0.0-0.1); BASOPHILS % 0.9 % (0.0-2.0); EOSINOPHILS # 0.1 10^3/ul (0.0-0.5); EOSINOPHILS % 1.6 % (0.0-7.0); HEMATOCRIT 23.9 % (42.0-52.0); LYMPHOCYTES # 1.7 10^3/ul (0.8-2.9); LYMPHOCYTES % 26.1 % (15.0-51.0); MEAN CORPUSCULAR HEMOGLOBIN 28.5 pg (29.0-33.0); MEAN CORPUSCULAR HGB CONC 33.5 g/dl (32.0-37.0); MEAN CORPUSCULAR VOLUME 85.1 fl (82.0-101.0); MEAN PLATELET VOLUME 10.9 fl (7.4-10.4); MONOCYTE # 0.5 10^3/ul (0.3-0.9); NEUTROPHILS % 62.8 % (39.0-77.0); NUCLEATED RED BLOOD CELLS% 0.3 /100WBC (0.0-0.0); PLATELET COUNT 181 10^3/UL (140-415); RED BLOOD COUNT 2.81 10^6/ul (4.70-6.10); RED CELL DISTRIBUTION WIDTH 18.6 % (11.5-14.5)
[2018-02-26] MEDS: PANTOPRAZOLE 40 MG INJ IV (05:36)
[2018-02-26] MEDS: SOD CHLORIDE 0.9% 1,000 ML IV ×2 (05:36→23:10)
[2018-02-26] MEDS: PIPER-TAZO 3.375 GM IV (PMX) 100 ML IVPB ×4 (05:36→17:18)
[2018-02-26 05:41] LABS: ANION GAP 5 (5-13); BLOOD UREA NITROGEN 9 mg/dl (7-20); CALCIUM 7.6 mg/dl (8.4-10.2); CARBON DIOXIDE 26 mmol/L (21-31); CHLORIDE 100 mmol/L (97-110); CREATININE 0.48 mg/dl (0.61-1.24); Estimated GFR > 60 mL/min (>60); GLUCOSE 101 mg/dl (70-220); MAGNESIUM 1.6 mg/dl (1.7-2.5); PHOSPHORUS 2.4 mg/dl (2.5-4.9); POTASSIUM 3.7 mmol/L (3.5-5.1); SODIUM 131 mmol/L (135-144)
[2018-02-26] MEDS: SOD PHOS MONO/DIBAS 250 MG TAB PO (08:21)
[2018-02-26] MEDS: NYSTATIN SUSP 5 ML CUP PO ×4 (08:21→20:33)
[2018-02-26] MEDS: SUCRALFATE 1 GM TAB PO ×4 (08:22→20:33)
[2018-02-26] MEDS: MAGNESIUM SULFATE 2 GM/50 ML 50 ML IVPB (08:22)
[2018-02-26] MEDS: VANCOMYCIN 1.5 GM in SOD CHLORIDE 0.9% 250 ML IVPB ×2 (09:33→20:33)
[2018-02-26] MEDS: HYDROCODONE/APAP (5/325) TAB PO (11:31)
[2018-02-26] MEDS: FLUCONAZOLE 100 MG TAB PO (18:48)
[2018-02-27] MEDS: SOD CHLORIDE 0.9% 1,000 ML IV ×2 (00:12→15:50)
[2018-02-27] MEDS: PIPER-TAZO 3.375 GM IV (PMX) 100 ML IVPB ×3 (00:12→13:11)
[2018-02-27] MEDS: HYDROCODONE/APAP (5/325) TAB PO ×4 (00:18→20:27)
[2018-02-27] MEDS: PANTOPRAZOLE 40 MG INJ IV (05:45)
[2018-02-27 07:25] LABS: ADD MAN DIFF? NO
[2018-02-27 07:33] LABS: BASOPHIL # 0.1 10^3/ul (0.0-0.1); BASOPHILS % 0.9 % (0.0-2.0); EOSINOPHILS # 0.2 10^3/ul (0.0-0.5); EOSINOPHILS % 2.2 % (0.0-7.0); HEMATOCRIT 23.3 % (42.0-52.0); HEMOGLOBIN 7.8 g/dl (14.0-18.0); LYMPHOCYTES # 1.8 10^3/ul (0.8-2.9); MEAN CORPUSCULAR HGB CONC 33.5 g/dl (32.0-37.0); MEAN CORPUSCULAR VOLUME 86.6 fl (82.0-101.0); MEAN PLATELET VOLUME 10.1 fl (7.4-10.4); MONOCYTE # 0.7 10^3/ul (0.3-0.9); MONOCYTES % 7.9 % (0.0-11.0); NEUTROPHIL # 6.2 10^3/ul (1.6-7.5); NUCLEATED RED BLOOD CELLS% 0.2 /100WBC (0.0-0.0); PLATELET COUNT 186 10^3/UL (140-415); RED BLOOD COUNT 2.69 10^6/ul (4.70-6.10); RED CELL DISTRIBUTION WIDTH 18.6 % (11.5-14.5)
[2018-02-27 08:00] LABS: MAGNESIUM 1.9 mg/dl (1.7-2.5)
[2018-02-27 08:02] LABS: ALANINE AMINOTRANSFERASE 16 IU/L (13-69); ALBUMIN 2.6 g/dl (3.3-4.9); ALBUMIN/GLOBULIN RATIO 0.76; ALKALINE PHOSPHATASE 183 IU/L (42-121); ANION GAP 4 (5-13); ASPARTATE AMINO TRANSFERASE 90 IU/L (15-46); BILIRUBIN,INDIRECT 0.4 mg/dl (0-1.1); BILIRUBIN,TOTAL 0.4 mg/dl (0.2-1.3); BLOOD UREA NITROGEN 8 mg/dl (7-20); CALCIUM 7.9 mg/dl (8.4-10.2); CARBON DIOXIDE 26 mmol/L (21-31); CHLORIDE 101 mmol/L (97-110); CREATININE 0.96 mg/dl (0.61-1.24); Estimated GFR > 60 mL/min (>60); GLUCOSE 101 mg/dl (70-220); POTASSIUM 3.4 mmol/L (3.5-5.1); SODIUM 131 mmol/L (135-144)
[2018-02-27 08:09] LABS: VANCOMYCIN,TROUGH 18.9 ug/ml (10.0-20.0)
[2018-02-27] MEDS: NYSTATIN SUSP 5 ML CUP PO ×4 (09:29→20:27)
[2018-02-27] MEDS: SUCRALFATE 1 GM TAB PO ×4 (09:29→20:27)
[2018-02-27] MEDS: FLUCONAZOLE 100 MG TAB PO (09:29)
[2018-02-27] MEDS: VANCOMYCIN 1.25 GM in SOD CHLORIDE 0.9% 250 ML IVPB (09:30)
[2018-02-27] MEDS: POTASSIUM CHLORIDE (SR) 20 MEQ TAB PO (10:13)
[2018-02-27] MEDS: SOD FERRIC GLUC COMPLX 125 MG in SOD CHLORIDE 0.9% 100 ML IVPB (18:02)
[2018-02-27] MEDS ORDERED: ONDANSETRON 4 MG INJ IV (18:30)
[2018-02-28] MEDS: HYDROCODONE/APAP (5/325) TAB PO ×4 (00:50→21:59)
[2018-02-28] MEDS: SOD CHLORIDE 0.9% 1,000 ML IV ×2 (00:59→08:30)
[2018-02-28] MEDS ORDERED: VANCOMYCIN 1.25 GM in SOD CHLORIDE 0.9% 250 ML IVPB (01:00)
[2018-02-28 05:29] LABS: ADD MAN DIFF? NO
[2018-02-28 05:32] LABS: WHITE BLOOD COUNT 9.2 10^3/ul (4.8-10.8)
[2018-02-28 05:32] LABS: BASOPHIL # 0.1 10^3/ul (0.0-0.1); BASOPHILS % 0.8 % (0.0-2.0); EOSINOPHILS # 0.3 10^3/ul (0.0-0.5); EOSINOPHILS % 2.8 % (0.0-7.0); HEMATOCRIT 24.7 % (42.0-52.0); HEMOGLOBIN 8.1 g/dl (14.0-18.0); LYMPHOCYTES # 1.8 10^3/ul (0.8-2.9); LYMPHOCYTES % 19.3 % (15.0-51.0); MEAN CORPUSCULAR HEMOGLOBIN 28.9 pg (29.0-33.0); MEAN CORPUSCULAR HGB CONC 32.8 g/dl (32.0-37.0); MEAN CORPUSCULAR VOLUME 88.2 fl (82.0-101.0); MONOCYTE # 0.8 10^3/ul (0.3-0.9); MONOCYTES % 8.2 % (0.0-11.0); NEUTROPHIL # 6.2 10^3/ul (1.6-7.5); PLATELET COUNT 226 10^3/UL (140-415); RED CELL DISTRIBUTION WIDTH 19.1 % (11.5-14.5)
[2018-02-28 05:53] LABS: ANION GAP 6 (5-13); BLOOD UREA NITROGEN 8 mg/dl (7-20); CALCIUM 8.2 mg/dl (8.4-10.2); CARBON DIOXIDE 25 mmol/L (21-31); CHLORIDE 101 mmol/L (97-110); CREATININE 0.81 mg/dl (0.61-1.24); Estimated GFR > 60 mL/min (>60); GLUCOSE 93 mg/dl (70-220); MAGNESIUM 1.7 mg/dl (1.7-2.5); PHOSPHORUS 3.3 mg/dl (2.5-4.9); POTASSIUM 3.9 mmol/L (3.5-5.1); SODIUM 132 mmol/L (135-144)
[2018-02-28] MEDS: LEVOFLOXACIN 500 MG TAB PO (06:28)
[2018-02-28] MEDS: PANTOPRAZOLE (EC) 40 MG TAB PO (06:28)
[2018-02-28] MEDS: SUCRALFATE 1 GM TAB PO ×4 (08:57→21:56)
[2018-02-28] MEDS: NYSTATIN SUSP 5 ML CUP PO ×4 (08:58→21:59)
[2018-02-28] MEDS: FLUCONAZOLE 100 MG TAB PO (08:58)
[2018-02-28] MEDS: SOD FERRIC GLUC COMPLX 125 MG in SOD CHLORIDE 0.9% 100 ML IVPB (17:50)
[2018-03-01] MEDS: LEVOFLOXACIN 500 MG TAB PO (05:43)
[2018-03-01] MEDS: PANTOPRAZOLE (EC) 40 MG TAB PO (05:43)
[2018-03-01 05:58] LABS: ADD MAN DIFF? NO
[2018-03-01 06:01] LABS: BASOPHILS % 0.5 % (0.0-2.0); EOSINOPHILS # 0.2 10^3/ul (0.0-0.5); EOSINOPHILS % 2.4 % (0.0-7.0); HEMATOCRIT 23.3 % (42.0-52.0); HEMOGLOBIN 7.8 g/dl (14.0-18.0); LYMPHOCYTES # 1.7 10^3/ul (0.8-2.9); MEAN CORPUSCULAR HEMOGLOBIN 29.1 pg (29.0-33.0); MEAN CORPUSCULAR HGB CONC 33.5 g/dl (32.0-37.0); MEAN CORPUSCULAR VOLUME 86.9 fl (82.0-101.0); MONOCYTE # 0.9 10^3/ul (0.3-0.9); MONOCYTES % 10.7 % (0.0-11.0); NEUTROPHIL # 5.6 10^3/ul (1.6-7.5); NEUTROPHILS % 65.8 % (39.0-77.0); NUCLEATED RED BLOOD CELLS% 0.2 /100WBC (0.0-0.0); PLATELET COUNT 228 10^3/UL (140-415); RED BLOOD COUNT 2.68 10^6/ul (4.70-6.10); RED CELL DISTRIBUTION WIDTH 19.1 % (11.5-14.5)
[2018-03-01 06:01] LABS: WHITE BLOOD COUNT 8.5 10^3/ul (4.8-10.8)
[2018-03-01 06:33] LABS: ANION GAP 6 (5-13); BLOOD UREA NITROGEN 6 mg/dl (7-20); CALCIUM 8.2 mg/dl (8.4-10.2); CARBON DIOXIDE 26 mmol/L (21-31); CHLORIDE 97 mmol/L (97-110); CREATININE 0.76 mg/dl (0.61-1.24); Estimated GFR > 60 mL/min (>60); GLUCOSE 94 mg/dl (70-220); MAGNESIUM 1.6 mg/dl (1.7-2.5); PHOSPHORUS 3.3 mg/dl (2.5-4.9); POTASSIUM 3.2 mmol/L (3.5-5.1); SODIUM 129 mmol/L (135-144)
[2018-03-01] MEDS: HYDROCODONE/APAP (5/325) TAB PO (07:52)
[2018-03-01] MEDS: SUCRALFATE 1 GM TAB PO ×2 (08:40→12:13)
[2018-03-01] MEDS: FLUCONAZOLE 100 MG TAB PO (08:40)
[2018-03-01] MEDS: NYSTATIN SUSP 5 ML CUP PO ×2 (08:41→12:15)
[2018-03-01] MEDS: POTASSIUM CHLORIDE (SR) 20 MEQ TAB PO ×2 (10:13→12:14)
[2018-03-01] MEDS: MAGNESIUM SULFATE 2 GM/50 ML 50 ML IVPB (10:23)
[2018-03-01] MEDS: HEPARIN (100 UNITS/ML) 5 ML SYG CATHETER (16:34)
== END 2018-03-01 17:10 | disposition home or self-care (01) | DRG 853 ==
LOC: E/R 17:15 → ICU 02-24 00:06 → 2NE 02-26 12:50 → 6WM 02-24 13:38
PROVIDERS: Pediatrics
PROC: 06H03DZ Insertion of Intraluminal Device into Inferior Vena Cava, Percutaneous Approach (ICD-10-PCS; principal; 2018-02-25 13:30)
PROC: 30233N1 Transfusion of Nonautologous Red Blood Cells into Peripheral Vein, Percutaneous Approach (ICD-10-PCS; 2018-02-25 13:30)
DX: A41.9 Sepsis, unspecified organism (principal); R65.21 Severe sepsis with septic shock; J18.9 Pneumonia, unspecified organism; I26.99 Other pulmonary embolism without acute cor pulmonale; B37.0 Candidal stomatitis; E87.1 Hypo-osmolality and hyponatremia; J98.11 Atelectasis; C79.9 Secondary malignant neoplasm of unspecified site; C16.1 Malignant neoplasm of fundus of stomach; D63.0 Anemia in neoplastic disease; D64.81 Anemia due to antineoplastic chemotherapy; D50.9 Iron deficiency anemia, unspecified; E11.9 Type 2 diabetes mellitus without complications; E87.8 Other disorders of electrolyte and fluid balance, not elsewhere classified; E86.1 Hypovolemia; I95.9 Hypotension, unspecified; I10 Essential (primary) hypertension; Z79.84 Long term (current) use of oral hypoglycemic drugs
CPT/HCPCS: 36430; 37191; 71045; 71275; 73610; 74176; 75940; 80048; 80053; 80069; 80202; 81003; 82150; 82728; 83036; 83540; 83605; 83690; 83735; 84100; 84443; 84484; 85025; 85610; 85730; 86850; 86900; 86901; 86920; 87040; 87081; 87086; 93005; 93306; 93970; 96374; 96375; 97110; 97116; 97161; 97166; 97530; 97535; 99291-25

== ENCOUNTER 2018-03-12 20:45 | Inpatient (IN) | payer OTHER ==
[2018-03-13] MEDS: SOD CHLORIDE 0.9% 500 ML IV (01:24)
[2018-03-13 01:25] LABS: ADD MAN DIFF? NO
[2018-03-13 01:26] LABS: WHITE BLOOD COUNT 6.2 10^3/ul (4.8-10.8)
[2018-03-13 01:26] LABS: ABNORMAL IP MESSAGE 1; BASOPHILS % 0.2 % (0.0-2.0); LYMPHOCYTES # 0.3 10^3/ul (0.8-2.9); MEAN CORPUSCULAR HEMOGLOBIN 30.3 pg (29.0-33.0); MEAN CORPUSCULAR HGB CONC 30.7 g/dl (32.0-37.0); MEAN CORPUSCULAR VOLUME 98.6 fl (82.0-101.0); MEAN PLATELET VOLUME 10.7 fl (7.4-10.4); MONOCYTE # 0.9 10^3/ul (0.3-0.9); MONOCYTES % 14.4 % (0.0-11.0); NEUTROPHIL # 4.9 10^3/ul (1.6-7.5); NEUTROPHILS % 78.9 % (39.0-77.0); NUCLEATED RED BLOOD CELLS% 0.6 /100WBC (0.0-0.0); PLATELET COUNT 160 10^3/UL (140-415); POSITIVE DIFF @See below; RED BLOOD COUNT 1.42 10^6/ul (4.70-6.10); RED CELL DISTRIBUTION WIDTH 22.4 % (11.5-14.5)
[2018-03-13 01:50] LABS: HEMOGLOBIN 4.3 g/dl (14.0-18.0)
[2018-03-13 01:58] LABS: ALANINE AMINOTRANSFERASE 18 IU/L (13-69); ALBUMIN 2.9 g/dl (3.3-4.9); ALBUMIN/GLOBULIN RATIO 0.82; ANION GAP 8 (5-13); ASPARTATE AMINO TRANSFERASE 134 IU/L (15-46); BILIRUBIN,INDIRECT 0.2 mg/dl (0-1.1); BILIRUBIN,TOTAL 0.2 mg/dl (0.2-1.3); BLOOD UREA NITROGEN 34 mg/dl (7-20); CALCIUM 8.3 mg/dl (8.4-10.2); CARBON DIOXIDE 27 mmol/L (21-31); CHLORIDE 96 mmol/L (97-110); CREATININE 0.76 mg/dl (0.61-1.24); Estimated GFR > 60 mL/min (>60); GLUCOSE 176 mg/dl (70-220); POTASSIUM 4.2 mmol/L (3.5-5.1); SODIUM 131 mmol/L (135-144); TOTAL PROTEIN 6.4 g/dl (6.1-8.1)
[2018-03-13 02:09] LABS: B-TYPE NATRIURETIC PEPTIDE 1620 PG/ML (0-125); TROPONIN-I < 0.012 ng/ml (0.000-0.120)
[2018-03-13 02:19] LABS: ALKALINE PHOSPHATASE 212 IU/L (42-121)
[2018-03-13 04:05] LABS: ADD UMIC NO; UR ASCORBIC ACID NEGATIVE (NEGATIVE); UR BILIRUBIN (Dip) NEGATIVE (NEGATIVE); UR BLOOD (Dip) NEGATIVE (NEGATIVE); UR CLARITY CLEAR (CLEAR); UR COLOR YELLOW (YELLOW); UR GLUCOSE (Dip) NEGATIVE (NEGATIVE); UR KETONES (Dip) NEGATIVE (NEGATIVE); UR LEUKOCYTE ESTERASE (Dip) NEGATIVE Leu/ul (NEGATIVE); UR NITRITE (Dip) NEGATIVE (NEGATIVE); UR SPECIFIC GRAVITY (Dip) 1.017 (1.003-1.030); UR TOTAL PROTEIN (Dip) NEGATIVE (NEGATIVE); UR UROBILINOGEN (Dip) 1+ mg/dL (NEGATIVE)
[2018-03-13] MEDS ORDERED: ONDANSETRON 4 MG INJ IV (05:00)
[2018-03-13] MEDS ORDERED: NACL 0.9% 3 ML SYG IV (05:00)
[2018-03-13] MEDS: PANTOPRAZOLE (EC) 40 MG TAB PO (06:47)
[2018-03-13] MEDS: PANTOPRAZOLE 40 MG INJ IV ×2 (07:43→17:19)
[2018-03-13] MEDS: SUCRALFATE 1 GM TAB PO ×4 (08:18→20:54)
[2018-03-13] MEDS: metFORMIN 500 MG TAB PO ×2 (08:19→17:21)
[2018-03-13] MEDS: AMLODIPINE 5 MG TAB PO (08:19)
[2018-03-13 10:20] LABS: IMMEDIATE SPIN CROSSMATCH 1 9
[2018-03-13] MEDS: SOD CHLORIDE 0.9% 250 ML IV* (15:46)
[2018-03-13 16:46] LABS: HEMATOCRIT 15.4 % (42.0-52.0)
[2018-03-13 16:54] LABS: HEMOGLOBIN 4.9 g/dl (14.0-18.0)
[2018-03-13] MEDS: ACETAMINOPHEN 325 MG TAB PO (17:20)
[2018-03-14] MEDS: ACETAMINOPHEN 325 MG TAB PO (04:00)
[2018-03-14 05:25] LABS: ADD MAN DIFF? NO
[2018-03-14 05:35] LABS: ABNORMAL IP MESSAGE 1; BASOPHILS % 0.2 % (0.0-2.0); EOSINOPHILS % 0.3 % (0.0-7.0); HEMATOCRIT 17.8 % (42.0-52.0); LYMPHOCYTES # 0.3 10^3/ul (0.8-2.9); LYMPHOCYTES % 4.6 % (15.0-51.0); MEAN CORPUSCULAR HEMOGLOBIN 31.4 pg (29.0-33.0); MEAN CORPUSCULAR HGB CONC 33.1 g/dl (32.0-37.0); MEAN CORPUSCULAR VOLUME 94.7 fl (82.0-101.0); MEAN PLATELET VOLUME 11.3 fl (7.4-10.4); MONOCYTE # 0.8 10^3/ul (0.3-0.9); MONOCYTES % 13.6 % (0.0-11.0); NEUTROPHIL # 4.8 10^3/ul (1.6-7.5); NEUTROPHILS % 79.6 % (39.0-77.0); NUCLEATED RED BLOOD CELLS # 0.1 10^3/ul (0.0-0.0); NUCLEATED RED BLOOD CELLS% 1.8 /100WBC (0.0-0.0); PLATELET COUNT 128 10^3/UL (140-415); POSITIVE DIFF @See below; RED BLOOD COUNT 1.88 10^6/ul (4.70-6.10)
[2018-03-14 05:35] LABS: WHITE BLOOD COUNT 6.1 10^3/ul (4.8-10.8)
[2018-03-14 05:42] LABS: HEMOGLOBIN 5.9 g/dl (14.0-18.0)
[2018-03-14] MEDS: PANTOPRAZOLE 40 MG INJ IV ×2 (05:46→17:35)
[2018-03-14 05:52] LABS: ANION GAP 6 (5-13); BLOOD UREA NITROGEN 25 mg/dl (7-20); CALCIUM 8.1 mg/dl (8.4-10.2); CARBON DIOXIDE 26 mmol/L (21-31); CHLORIDE 100 mmol/L (97-110); CREATININE 0.57 mg/dl (0.61-1.24); Estimated GFR > 60 mL/min (>60); GLUCOSE 122 mg/dl (70-220); MAGNESIUM 1.7 mg/dl (1.7-2.5); PHOSPHORUS 3.6 mg/dl (2.5-4.9); POTASSIUM 3.9 mmol/L (3.5-5.1); SODIUM 132 mmol/L (135-144)
[2018-03-14] MEDS: SUCRALFATE 1 GM TAB PO ×3 (08:35→17:35)
[2018-03-14] MEDS: metFORMIN 500 MG TAB PO ×2 (08:35→17:35)
[2018-03-14] MEDS: AMLODIPINE 5 MG TAB PO (08:36)
[2018-03-14] MEDS: SOD CHLORIDE 0.9% 250 ML IV* (10:07)
== END 2018-03-14 18:23 | disposition home or self-care (01) | DRG 812 ==
LOC: E/R 20:45 → 6WM 03-13 02:57
PROVIDERS: Pediatrics Neonatal-Perinatal Medicine
PROC: 30233N1 Transfusion of Nonautologous Red Blood Cells into Peripheral Vein, Percutaneous Approach (ICD-10-PCS; principal; 2018-03-13)
DX: D50.0 Iron deficiency anemia secondary to blood loss (chronic) (principal); C16.9 Malignant neoplasm of stomach, unspecified; I10 Essential (primary) hypertension; E11.9 Type 2 diabetes mellitus without complications; D63.0 Anemia in neoplastic disease
CPT/HCPCS: 36415; 36430; 71045; 80048; 80053; 81003; 82962; 83735; 83880; 84100; 84484; 85014; 85018; 85025; 86644; 86850; 86900; 86901; 86920; 93005; 99285-25

== ENCOUNTER 2018-03-20 14:37 | Inpatient (IN) | payer OTHER ==
[2018-03-20 20:44] LABS: INR 1.01; PARTIAL THROMBOPLASTIN TIME 37.8 Sec (23.0-35.0); PROTIME 13.4 Sec (11.9-14.9)
[2018-03-20 20:45] LABS: ALANINE AMINOTRANSFERASE 17 IU/L (13-69); ALBUMIN 2.8 g/dl (3.3-4.9); ALBUMIN/GLOBULIN RATIO 0.84; ALKALINE PHOSPHATASE 183 IU/L (42-121); ANION GAP 9 (5-13); ASPARTATE AMINO TRANSFERASE 94 IU/L (15-46); BLOOD UREA NITROGEN 34 mg/dl (7-20); CALCIUM 8.4 mg/dl (8.4-10.2); CARBON DIOXIDE 24 mmol/L (21-31); CHLORIDE 101 mmol/L (97-110); CREATININE 0.72 mg/dl (0.61-1.24); Estimated GFR > 60 mL/min (>60); GLUCOSE 187 mg/dl (70-220); LIPASE 11 U/L (23-300); POTASSIUM 4.7 mmol/L (3.5-5.1); SODIUM 134 mmol/L (135-144); TOTAL PROTEIN 6.1 g/dl (6.1-8.1)
[2018-03-20 20:57] LABS: WHITE BLOOD COUNT 10.5 10^3/ul (4.8-10.8)
[2018-03-20 20:57] LABS: ABNORMAL IP MESSAGE 1; HEMATOCRIT 20.2 % (42.0-52.0); MEAN CORPUSCULAR HEMOGLOBIN 31.3 pg (29.0-33.0); MEAN CORPUSCULAR HGB CONC 30.2 g/dl (32.0-37.0); MEAN CORPUSCULAR VOLUME 103.6 fl (82.0-101.0); NUCLEATED RED BLOOD CELLS% 0.3 /100WBC (0.0-0.0); PLATELET COUNT 188 10^3/UL (140-415); POSITIVE DIFF @See below; RED BLOOD COUNT 1.95 10^6/ul (4.70-6.10); TROPONIN-I < 0.012 ng/ml (0.000-0.120)
[2018-03-20 20:59] LABS: ADD MAN DIFF? YES; HEMOGLOBIN 6.1 g/dl (14.0-18.0)
[2018-03-20] MEDS: SODIUM CHLORIDE 0.9% 1L BAG IV* (21:09)
[2018-03-20] MEDS: CEFEPIME 2GM/50 ML (PMX) 50 ML IVPB (21:09)
[2018-03-20] MEDS: PANTOPRAZOLE IV 80 MG in SOD CHLORIDE 0.9% 100 ML IV (21:28)
[2018-03-20] MEDS: OCTREOTIDE 50 MCG in SOD CHLORIDE 0.9% 25 ML IVPB (21:57)
[2018-03-20] MEDS: OCTREOTIDE 500 MCG in SOD CHLORIDE 0.9% 49 ML IV (21:58)
[2018-03-20] MEDS ORDERED: ACETAMINOPHEN 325 MG TAB PO (22:00)
[2018-03-20] MEDS ORDERED: morphine 2 MG INJ IV (22:00)
[2018-03-20] MEDS: PANTOPRAZOLE IV 80 MG in SOD CHLORIDE 0.9% 100 ML IVPB (22:05)
[2018-03-20] MEDS: VANCOMYCIN 1 GM (PMX) 250 ML IVPB (22:13)
[2018-03-20 23:08] LABS: IMMEDIATE SPIN CROSSMATCH 1 9
[2018-03-20 23:24] LABS: BAND NEUTROPHILS #M 0.4 10^3/ul (0.0-0.6); BAND NEUTROPHILS % (M) 4 % (0-4); EOSINOPHILS # 0.1 10^3/ul (0.0-0.5); EOSINOPHILS % (M) 1 % (0.0-7.0); LYMPHOCYTES # 0.4 10^3/ul (0.8-2.9); LYMPHOCYTES #M 0.4 10^3/ul (0.8-2.9); LYMPHOCYTES % (M) 4 % (15-51); MONOCYTE # 0.2 10^3/ul (0.3-0.9); MONOCYTE #M 0.2 10^3/ul (0.3-0.9); MONOCYTES % (M) 2 % (0-11); SEG NEUT #M 9.4 10^3/ul (1.7-7.5); SEGMENTED NEUTROPHILS (M) % 89 % (39-77)
[2018-03-20 23:27] LABS: ANISOCYTOSIS FEW (0-0); HYPOCHROMASIA MANY (0-0); POLYCHROMASIA FEW (0-0); TARGET CELLS MANY (0-0)
[2018-03-20 23:37] LABS: ADD UMIC NO; UR ASCORBIC ACID NEGATIVE (NEGATIVE); UR BILIRUBIN (Dip) NEGATIVE (NEGATIVE); UR BLOOD (Dip) NEGATIVE (NEGATIVE); UR CLARITY CLEAR (CLEAR); UR COLOR YELLOW (YELLOW); UR GLUCOSE (Dip) NEGATIVE (NEGATIVE); UR KETONES (Dip) NEGATIVE (NEGATIVE); UR LEUKOCYTE ESTERASE (Dip) NEGATIVE Leu/ul (NEGATIVE); UR NITRITE (Dip) NEGATIVE (NEGATIVE); UR SPECIFIC GRAVITY (Dip) 1.014 (1.003-1.030); UR TOTAL PROTEIN (Dip) NEGATIVE (NEGATIVE); UR UROBILINOGEN (Dip) NEGATIVE (NEGATIVE)
[2018-03-21] MEDS: ONDANSETRON 4 MG INJ IV (00:13)
[2018-03-21 06:12] LABS: ADD MAN DIFF? NO
[2018-03-21 07:22] LABS: WHITE BLOOD COUNT 11.8 10^3/ul (4.8-10.8)
[2018-03-21 07:22] LABS: ABNORMAL IP MESSAGE 1; BASOPHILS % 0.2 % (0.0-2.0); EOSINOPHILS % 0.1 % (0.0-7.0); LYMPHOCYTES # 0.3 10^3/ul (0.8-2.9); LYMPHOCYTES % 2.4 % (15.0-51.0); MEAN CORPUSCULAR HEMOGLOBIN 31.2 pg (29.0-33.0); MEAN CORPUSCULAR HGB CONC 31.4 g/dl (32.0-37.0); MEAN CORPUSCULAR VOLUME 99.3 fl (82.0-101.0); MEAN PLATELET VOLUME 10.9 fl (7.4-10.4); MONOCYTES % 8.1 % (0.0-11.0); NEUTROPHIL # 10.4 10^3/ul (1.6-7.5); NEUTROPHILS % 88.4 % (39.0-77.0); NUCLEATED RED BLOOD CELLS% 0.3 /100WBC (0.0-0.0); PLATELET COUNT 151 10^3/UL (140-415); POSITIVE DIFF @See below; RED BLOOD COUNT 1.41 10^6/ul (4.70-6.10); RED CELL DISTRIBUTION WIDTH 19.2 % (11.5-14.5)
[2018-03-21 07:27] LABS: HEMOGLOBIN 4.4 g/dl (14.0-18.0)
[2018-03-21 08:45] LABS: ALANINE AMINOTRANSFERASE 15 IU/L (13-69); ALBUMIN 2.3 g/dl (3.3-4.9); ALBUMIN/GLOBULIN RATIO 0.76; ALKALINE PHOSPHATASE 153 IU/L (42-121); ANION GAP 5 (5-13); ASPARTATE AMINO TRANSFERASE 166 IU/L (15-46); BILIRUBIN,INDIRECT 0.2 mg/dl (0-1.1); BILIRUBIN,TOTAL 0.2 mg/dl (0.2-1.3); BLOOD UREA NITROGEN 26 mg/dl (7-20); CARBON DIOXIDE 25 mmol/L (21-31); CHLORIDE 106 mmol/L (97-110); CREATININE 0.66 mg/dl (0.61-1.24); Estimated GFR > 60 mL/min (>60); GLUCOSE 145 mg/dl (70-220); MAGNESIUM 1.8 mg/dl (1.7-2.5); POTASSIUM 4.4 mmol/L (3.5-5.1); SODIUM 136 mmol/L (135-144); TOTAL PROTEIN 5.3 g/dl (6.1-8.1)
[2018-03-21] MEDS: morphine SULFATE/PF (2 MG/2 ML) SYG IV (17:17)
[2018-03-21] MEDS: PANTOPRAZOLE 40 MG INJ IV (17:19)
[2018-03-21] MEDS: NACL 0.9% 3 ML SYG IV (17:21)
[2018-03-21 21:17] LABS: HEMATOCRIT 25.8 % (42.0-52.0); HEMOGLOBIN 8.6 g/dl (14.0-18.0)
[2018-03-21] MEDS: HYDROmorphONE 0.5 MG/0.5 ML SYG IV (21:28)
[2018-03-22] MEDS: HYDROmorphONE 0.5 MG/0.5 ML SYG IV ×2 (03:48→18:19)
[2018-03-22] MEDS: PANTOPRAZOLE 40 MG INJ IV ×2 (05:47→18:16)
[2018-03-22 06:10] LABS: ADD MAN DIFF? NO
[2018-03-22 06:14] LABS: WHITE BLOOD COUNT 12.9 10^3/ul (4.8-10.8)
[2018-03-22 06:14] LABS: ABNORMAL IP MESSAGE 1; BASOPHILS % 0.2 % (0.0-2.0); EOSINOPHILS % 0.2 % (0.0-7.0); HEMATOCRIT 24.7 % (42.0-52.0); HEMOGLOBIN 8.4 g/dl (14.0-18.0); LYMPHOCYTES # 0.2 10^3/ul (0.8-2.9); LYMPHOCYTES % 1.5 % (15.0-51.0); MEAN CORPUSCULAR HEMOGLOBIN 30.2 pg (29.0-33.0); MEAN CORPUSCULAR VOLUME 88.8 fl (82.0-101.0); MEAN PLATELET VOLUME 10.9 fl (7.4-10.4); MONOCYTES % 7.8 % (0.0-11.0); NEUTROPHIL # 11.6 10^3/ul (1.6-7.5); NEUTROPHILS % 89.7 % (39.0-77.0); NUCLEATED RED BLOOD CELLS # 0.1 10^3/ul (0.0-0.0); NUCLEATED RED BLOOD CELLS% 0.4 /100WBC (0.0-0.0); PLATELET COUNT 114 10^3/UL (140-415); POSITIVE DIFF @See below; RED BLOOD COUNT 2.78 10^6/ul (4.70-6.10); RED CELL DISTRIBUTION WIDTH 18.3 % (11.5-14.5)
[2018-03-22 06:46] LABS: ALANINE AMINOTRANSFERASE 13 IU/L (13-69); ALBUMIN 2.4 g/dl (3.3-4.9); ALKALINE PHOSPHATASE 152 IU/L (42-121); ANION GAP 4 (5-13); ASPARTATE AMINO TRANSFERASE 151 IU/L (15-46); BILIRUBIN,INDIRECT 0.4 mg/dl (0-1.1); BILIRUBIN,TOTAL 0.4 mg/dl (0.2-1.3); BLOOD UREA NITROGEN 15 mg/dl (7-20); CALCIUM 8.1 mg/dl (8.4-10.2); CARBON DIOXIDE 27 mmol/L (21-31); CHLORIDE 104 mmol/L (97-110); CREATININE 0.55 mg/dl (0.61-1.24); Estimated GFR > 60 mL/min (>60); GLUCOSE 118 mg/dl (70-220); POTASSIUM 3.7 mmol/L (3.5-5.1); SODIUM 135 mmol/L (135-144); TOTAL PROTEIN 5.4 g/dl (6.1-8.1)
[2018-03-22] MEDS: morphine SULFATE/PF (2 MG/2 ML) SYG IV (10:10)
[2018-03-22] MEDS ORDERED: PROPOFOL 20 ML (14:12)
[2018-03-22] MEDS ORDERED: FENTAnyl 50 MCG/ML VIAL IV (14:30)
[2018-03-22 18:07] LABS: HEMATOCRIT 26.8 % (42.0-52.0); HEMOGLOBIN 8.9 g/dl (14.0-18.0)
[2018-03-22] MEDS: SUCRALFATE (100 MG/ML) 10ML CUP PO ×2 (18:18→21:16)
[2018-03-23 01:11] LABS: HEMATOCRIT 23.7 % (42.0-52.0); HEMOGLOBIN 7.9 g/dl (14.0-18.0)
[2018-03-23 05:15] LABS: HEMATOCRIT 23.5 % (42.0-52.0); HEMOGLOBIN 7.9 g/dl (14.0-18.0)
[2018-03-23] MEDS: PANTOPRAZOLE 40 MG INJ IV (05:17)
[2018-03-23] MEDS: SUCRALFATE (100 MG/ML) 10ML CUP PO ×2 (09:06→15:40)
== END 2018-03-23 16:04 | disposition home or self-care (01) | DRG 375 ==
LOC: 6WM 21:26 → E/R 14:37
PROC: 0W3P8ZZ Control Bleeding in Gastrointestinal Tract, Via Natural or Artificial Opening Endoscopic (ICD-10-PCS; principal; 2018-03-22 13:10)
PROC: 30233N1 Transfusion of Nonautologous Red Blood Cells into Peripheral Vein, Percutaneous Approach (ICD-10-PCS; 2018-03-22 13:10)
DX: C16.2 Malignant neoplasm of body of stomach (principal); K92.2 Gastrointestinal hemorrhage, unspecified; D62 Acute posthemorrhagic anemia; I10 Essential (primary) hypertension; D63.0 Anemia in neoplastic disease; E11.9 Type 2 diabetes mellitus without complications; Z86.718 Personal history of other venous thrombosis and embolism; Z92.21 Personal history of antineoplastic chemotherapy; Z86.711 Personal history of pulmonary embolism; Z92.3 Personal history of irradiation
CPT/HCPCS: 36415; 36430; 71045; 80053; 81003; 83605; 83690; 83735; 84484; 85014; 85018; 85025; 85610; 85730; 86850; 86900; 86901; 86920; 87040; 87081; 87086; 93005; 96365; 97161; 99291-25

== ENCOUNTER 2018-04-01 10:09 | Inpatient (IN) | payer OTHER ==
[2018-04-01 11:04] LABS: ADD MAN DIFF? NO
[2018-04-01] MEDS: SOD CHLORIDE 0.9% 1,000 ML IV ×3 (11:06→22:00)
[2018-04-01] MEDS: PANTOPRAZOLE 40 MG INJ IV ×2 (11:06→20:37)
[2018-04-01 11:09] LABS: ABNORMAL IP MESSAGE 1; BASOPHILS % 0.1 % (0.0-2.0); EOSINOPHILS % 0.2 % (0.0-7.0); HEMATOCRIT 13.3 % (42.0-52.0); LYMPHOCYTES # 0.1 10^3/ul (0.8-2.9); LYMPHOCYTES % 1.7 % (15.0-51.0); MEAN CORPUSCULAR HEMOGLOBIN 30.1 pg (29.0-33.0); MEAN CORPUSCULAR HGB CONC 30.8 g/dl (32.0-37.0); MEAN CORPUSCULAR VOLUME 97.8 fl (82.0-101.0); MEAN PLATELET VOLUME 11.3 fl (7.4-10.4); MONOCYTE # 0.5 10^3/ul (0.3-0.9); MONOCYTES % 5.7 % (0.0-11.0); NEUTROPHIL # 7.5 10^3/ul (1.6-7.5); NEUTROPHILS % 91.6 % (39.0-77.0); NUCLEATED RED BLOOD CELLS% 0.2 /100WBC (0.0-0.0); PLATELET COUNT 131 10^3/UL (140-415); POSITIVE DIFF @See below; RED BLOOD COUNT 1.36 10^6/ul (4.70-6.10)
[2018-04-01 11:09] LABS: WHITE BLOOD COUNT 8.1 10^3/ul (4.8-10.8)
[2018-04-01 11:26] LABS: INR 0.94; PARTIAL THROMBOPLASTIN TIME 36.8 Sec (23.0-35.0); PROTIME 12.7 Sec (11.9-14.9)
[2018-04-01 11:28] LABS: HEMOGLOBIN 4.1 g/dl (14.0-18.0)
[2018-04-01 11:32] LABS: ALANINE AMINOTRANSFERASE 16 IU/L (13-69); ALBUMIN 2.7 g/dl (3.3-4.9); ALBUMIN/GLOBULIN RATIO 0.77; ALKALINE PHOSPHATASE 147 IU/L (42-121); ANION GAP 7 (5-13); ASPARTATE AMINO TRANSFERASE 84 IU/L (15-46); BLOOD UREA NITROGEN 17 mg/dl (7-20); CARBON DIOXIDE 25 mmol/L (21-31); CHLORIDE 95 mmol/L (97-110); CREATININE 0.62 mg/dl (0.61-1.24); Estimated GFR > 60 mL/min (>60); GLUCOSE 146 mg/dl (70-220); POTASSIUM 3.8 mmol/L (3.5-5.1); SODIUM 127 mmol/L (135-144); TOTAL PROTEIN 6.2 g/dl (6.1-8.1)
[2018-04-01 11:44] LABS: TROPONIN-I < 0.012 ng/ml (0.000-0.120)
[2018-04-01] MEDS ORDERED: ACETAMINOPHEN 325 MG TAB PO ×2 (12:00)
[2018-04-01] MEDS ORDERED: morphine 2 MG INJ IV (12:00)
[2018-04-01] MEDS ORDERED: ONDANSETRON 4 MG INJ IV ×2 (12:00)
[2018-04-01] MEDS ORDERED: NACL 0.9% 3 ML SYG IV (12:00)
[2018-04-01 13:11] LABS: IMMEDIATE SPIN CROSSMATCH 1 4
[2018-04-01] MEDS ORDERED: GLUCAGON 1 MG INJ IM (13:30)
[2018-04-01] MEDS ORDERED: GLUCOSE GEL 15 GRAM TUBE BUCCAL (13:30)
[2018-04-01] MEDS ORDERED: GLUCOSE GEL 15 GRAM TUBE PO ×2 (13:30)
[2018-04-01] MEDS ORDERED: DEXTROSE 50% 50 ML SYRINGE IV ×2 (13:30)
[2018-04-01] MEDS: INSULIN ASPART [NOVOLOG] 3 ML PEN SC ×2 (18:00→20:35)
[2018-04-01] MEDS: SOD CHLORIDE 0.9% 0 ML IV (21:00)
[2018-04-02] MEDS: PANTOPRAZOLE 40 MG INJ IV ×2 (05:36→17:12)
[2018-04-02 05:45] LABS: ADD MAN DIFF? NO
[2018-04-02] MEDS: SOD CHLORIDE 0.9% 1,000 ML IV ×2 (05:46→17:12)
[2018-04-02 06:01] LABS: WHITE BLOOD COUNT 7.5 10^3/ul (4.8-10.8)
[2018-04-02 06:01] LABS: ABNORMAL IP MESSAGE 1; BASOPHILS % 0.3 % (0.0-2.0); EOSINOPHILS % 0.3 % (0.0-7.0); HEMATOCRIT 25.2 % (42.0-52.0); HEMOGLOBIN 8.6 g/dl (14.0-18.0); LYMPHOCYTES # 0.1 10^3/ul (0.8-2.9); LYMPHOCYTES % 1.5 % (15.0-51.0); MEAN CORPUSCULAR HEMOGLOBIN 31.2 pg (29.0-33.0); MEAN CORPUSCULAR HGB CONC 34.1 g/dl (32.0-37.0); MEAN CORPUSCULAR VOLUME 91.3 fl (82.0-101.0); MONOCYTE # 0.3 10^3/ul (0.3-0.9); MONOCYTES % 4.1 % (0.0-11.0); NEUTROPHILS % 93.3 % (39.0-77.0); NUCLEATED RED BLOOD CELLS% 0.4 /100WBC (0.0-0.0); PLATELET COUNT 77 10^3/UL (140-415); POSITIVE DIFF @See below; RED BLOOD COUNT 2.76 10^6/ul (4.70-6.10); RED CELL DISTRIBUTION WIDTH 15.5 % (11.5-14.5)
[2018-04-02 06:09] LABS: ANION GAP 5 (5-13); BLOOD UREA NITROGEN 11 mg/dl (7-20); CALCIUM 7.8 mg/dl (8.4-10.2); CARBON DIOXIDE 25 mmol/L (21-31); CHLORIDE 98 mmol/L (97-110); CREATININE 0.48 mg/dl (0.61-1.24); Estimated GFR > 60 mL/min (>60); GLUCOSE 92 mg/dl (70-220); MAGNESIUM 1.7 mg/dl (1.7-2.5); POTASSIUM 3.6 mmol/L (3.5-5.1); SODIUM 128 mmol/L (135-144)
[2018-04-02] MEDS: INSULIN ASPART [NOVOLOG] 3 ML PEN SC ×4 (07:56→21:00)
[2018-04-02] MEDS: POTASSIUM CHLORIDE (SR) 20 MEQ TAB PO (09:37)
[2018-04-02] MEDS: HYDROCODONE/APAP (10/325) TAB PO (09:37)
[2018-04-02] MEDS: MAGNESIUM OXIDE 400 MG TAB PO (09:37)
[2018-04-02] MEDS ORDERED: morphine LIQ (10 MG/5 ML) CUP PO (23:30)
[2018-04-03] MEDS: SOD CHLORIDE 0.9% 1,000 ML IV ×2 (03:46→09:36)
[2018-04-03] MEDS: PANTOPRAZOLE 40 MG INJ IV (05:51)
[2018-04-03 06:04] LABS: ADD MAN DIFF? NO
[2018-04-03 06:11] LABS: WHITE BLOOD COUNT 6.8 10^3/ul (4.8-10.8)
[2018-04-03 06:11] LABS: ABNORMAL IP MESSAGE 1; BASOPHILS % 0.3 % (0.0-2.0); EOSINOPHILS % 0.6 % (0.0-7.0); HEMATOCRIT 26.7 % (42.0-52.0); HEMOGLOBIN 8.9 g/dl (14.0-18.0); LYMPHOCYTES # 0.1 10^3/ul (0.8-2.9); LYMPHOCYTES % 1.9 % (15.0-51.0); MEAN CORPUSCULAR HEMOGLOBIN 30.8 pg (29.0-33.0); MEAN CORPUSCULAR HGB CONC 33.3 g/dl (32.0-37.0); MEAN CORPUSCULAR VOLUME 92.4 fl (82.0-101.0); MEAN PLATELET VOLUME 11.8 fl (7.4-10.4); MONOCYTE # 0.4 10^3/ul (0.3-0.9); MONOCYTES % 5.7 % (0.0-11.0); NEUTROPHIL # 6.2 10^3/ul (1.6-7.5); NEUTROPHILS % 90.8 % (39.0-77.0); NUCLEATED RED BLOOD CELLS% 0.4 /100WBC (0.0-0.0); POSITIVE DIFF @See below; RED BLOOD COUNT 2.89 10^6/ul (4.70-6.10); RED CELL DISTRIBUTION WIDTH 15.9 % (11.5-14.5)
[2018-04-03 06:37] LABS: ALBUMIN 2.5 g/dl (3.3-4.9); ANION GAP 9 (5-13); BLOOD UREA NITROGEN 8 mg/dl (7-20); CALCIUM 7.7 mg/dl (8.4-10.2); CARBON DIOXIDE 24 mmol/L (21-31); CHLORIDE 95 mmol/L (97-110); GLUCOSE 100 mg/dl (70-220); MAGNESIUM 1.5 mg/dl (1.7-2.5); PHOSPHORUS 3.3 mg/dl (2.5-4.9); POTASSIUM 3.5 mmol/L (3.5-5.1); SODIUM 128 mmol/L (135-144)
[2018-04-03 06:43] LABS: PLATELET COUNT 76 10^3/UL (140-415)
[2018-04-03] MEDS: INSULIN ASPART [NOVOLOG] 3 ML PEN SC ×2 (07:52→11:51)
[2018-04-03] MEDS: MAGNESIUM OXIDE 400 MG TAB PO (09:36)
[2018-04-03] MEDS: HYDROCODONE/APAP (10/325) TAB PO (09:39)
[2018-04-03 13:28] LABS: PATH REVIEW? YES
== END 2018-04-03 12:45 | disposition home or self-care (01) | DRG 871 ==
LOC: E/R 10:09 → 6WM 11:34
PROVIDERS: Pediatrics
PROC: 30233N1 Transfusion of Nonautologous Red Blood Cells into Peripheral Vein, Percutaneous Approach (ICD-10-PCS; principal; 2018-04-01)
DX: A41.9 Sepsis, unspecified organism (principal); R65.21 Severe sepsis with septic shock; C16.2 Malignant neoplasm of body of stomach; D64.9 Anemia, unspecified; Z87.891 Personal history of nicotine dependence; R59.1 Generalized enlarged lymph nodes; Z86.711 Personal history of pulmonary embolism; E86.1 Hypovolemia; I10 Essential (primary) hypertension; E11.9 Type 2 diabetes mellitus without complications; D69.6 Thrombocytopenia, unspecified
CPT/HCPCS: 36430; 80048; 80053; 80069; 82962; 83735; 84484; 85025; 85610; 85730; 86850; 86900; 86901; 86920; 93005; 96374; 97162; 97167; 99291-25

== ENCOUNTER 2018-07-29 11:51 | Inpatient (IN) | payer OTHER ==
[2018-07-29 12:45] LABS: ADD MAN DIFF? NO
[2018-07-29 12:50] LABS: WHITE BLOOD COUNT 24.3 10^3/ul (4.8-10.8)
[2018-07-29 12:50] LABS: ABNORMAL IP MESSAGE 1; BASOPHIL # 0.1 10^3/ul (0.0-0.1); BASOPHILS % 0.2 % (0.0-2.0); HEMATOCRIT 17.4 % (42.0-52.0); LYMPHOCYTES # 1.1 10^3/ul (0.8-2.9); LYMPHOCYTES % 4.4 % (15.0-51.0); MEAN CORPUSCULAR HGB CONC 31.6 g/dl (32.0-37.0); MEAN CORPUSCULAR VOLUME 79.1 fl (82.0-101.0); MEAN PLATELET VOLUME 9.1 fl (7.4-10.4); MONOCYTE # 1.1 10^3/ul (0.3-0.9); MONOCYTES % 4.5 % (0.0-11.0); NEUTROPHIL # 21.8 10^3/ul (1.6-7.5); NEUTROPHILS % 89.8 % (39.0-77.0); PLATELET COUNT 450 10^3/UL (140-415); POSITIVE DIFF @See below; RED CELL DISTRIBUTION WIDTH 16.2 % (11.5-14.5)
[2018-07-29 13:00] LABS: HEMOGLOBIN 5.5 g/dl (14.0-18.0)
[2018-07-29] MEDS: SODIUM CHLORIDE 0.9% 1L BAG IV* (13:03)
[2018-07-29 13:12] LABS: ALANINE AMINOTRANSFERASE 46 IU/L (13-69); ALBUMIN/GLOBULIN RATIO 0.75; ALKALINE PHOSPHATASE 420 IU/L (42-121); ANION GAP 9 (5-13); ASPARTATE AMINO TRANSFERASE 89 IU/L (15-46); BILIRUBIN,INDIRECT 0.2 mg/dl (0-1.1); BILIRUBIN,TOTAL 0.2 mg/dl (0.2-1.3); BLOOD UREA NITROGEN 25 mg/dl (7-20); CALCIUM 8.4 mg/dl (8.4-10.2); CARBON DIOXIDE 24 mmol/L (21-31); CHLORIDE 90 mmol/L (97-110); CREATININE 0.74 mg/dl (0.61-1.24); Estimated GFR > 60 mL/min (>60); GLUCOSE 173 mg/dl (70-220); INR 1.08; PARTIAL THROMBOPLASTIN TIME 35.4 Sec (23.0-35.0); POTASSIUM 4.7 mmol/L (3.5-5.1); PROTIME 14.1 Sec (11.9-14.9); PT RATIO 1.1; SODIUM 123 mmol/L (135-144)
[2018-07-29 13:21] LABS: TROPONIN-I < 0.012 ng/ml (0.000-0.120)
[2018-07-29] MEDS: PIPER-TAZO 3.375 GM IV (PMX) 100 ML IVPB (14:51)
[2018-07-29 14:57] LABS: IMMEDIATE SPIN CROSSMATCH 1 3
[2018-07-29 16:30] LABS: ADD UMIC NO; UR ASCORBIC ACID NEGATIVE (NEGATIVE); UR BILIRUBIN (Dip) NEGATIVE (NEGATIVE); UR BLOOD (Dip) NEGATIVE (NEGATIVE); UR CLARITY SLIGHTLY CLOUDY (CLEAR); UR COLOR YELLOW (YELLOW); UR GLUCOSE (Dip) NEGATIVE (NEGATIVE); UR KETONES (Dip) NEGATIVE (NEGATIVE); UR LEUKOCYTE ESTERASE (Dip) NEGATIVE Leu/ul (NEGATIVE); UR NITRITE (Dip) NEGATIVE (NEGATIVE); UR RBC 0 /HPF (0-5); UR SPECIFIC GRAVITY (Dip) 1.013 (1.003-1.030); UR TOTAL PROTEIN (Dip) NEGATIVE (NEGATIVE); UR UROBILINOGEN (Dip) 1+ mg/dL (NEGATIVE); UR WBC 1 /HPF (0-5)
[2018-07-29] MEDS ORDERED: DOCUSATE SODIUM 100 MG CAP PO (17:30)
[2018-07-29] MEDS ORDERED: NACL 0.9% 3 ML SYG IV (17:30)
[2018-07-29] MEDS ORDERED: ZOLPIDEM 5 MG TAB PO (17:30)
[2018-07-29] MEDS ORDERED: HYDROCODONE/APAP (5/325) TAB PO (17:30)
[2018-07-29 17:53] LABS: LACTIC ACID 1.1 mmol/L (0.5-2.0)
[2018-07-29] MEDS: SUCRALFATE (100 MG/ML) 10ML CUP PO (21:46)
[2018-07-29] MEDS: PANTOPRAZOLE 40 MG INJ IV (21:46)
[2018-07-29] MEDS: D5W-0.45 NACL + KCL 20 MEQ 1,000 ML IV (21:47)
[2018-07-29] MEDS: morphine 2 MG INJ IV (22:25)
[2018-07-29] MEDS: ACETAMINOPHEN 325 MG TAB PO (23:56)
[2018-07-30 01:18] LABS: ADD UMIC NO; UR ASCORBIC ACID NEGATIVE (NEGATIVE); UR BILIRUBIN (Dip) NEGATIVE (NEGATIVE); UR BLOOD (Dip) NEGATIVE (NEGATIVE); UR CLARITY CLEAR (CLEAR); UR COLOR YELLOW (YELLOW); UR GLUCOSE (Dip) NEGATIVE (NEGATIVE); UR KETONES (Dip) NEGATIVE (NEGATIVE); UR LEUKOCYTE ESTERASE (Dip) NEGATIVE Leu/ul (NEGATIVE); UR NITRITE (Dip) NEGATIVE (NEGATIVE); UR SPECIFIC GRAVITY (Dip) 1.014 (1.003-1.030); UR TOTAL PROTEIN (Dip) NEGATIVE (NEGATIVE); UR UROBILINOGEN (Dip) NEGATIVE (NEGATIVE)
[2018-07-30] MEDS: D5W-0.45 NACL + KCL 20 MEQ 1,000 ML IV ×3 (03:08→13:08)
[2018-07-30 03:10] LABS: POST-TRANSFUSION BILIRUBIN 0.4 mg/dl
[2018-07-30 03:10] LABS: PRETRANSFUSION BILIRUBIN 0.2 mg/dl
[2018-07-30] MEDS: morphine 2 MG INJ IV (05:04)
[2018-07-30] MEDS: PANTOPRAZOLE 40 MG INJ IV (05:04)
[2018-07-30] MEDS ORDERED: GLUCOSE GEL 15 GRAM TUBE PO ×2 (05:30)
[2018-07-30] MEDS ORDERED: GLUCAGON 1 MG INJ IM (05:30)
[2018-07-30] MEDS ORDERED: DEXTROSE 50% 50 ML SYRINGE IV ×2 (05:30)
[2018-07-30] MEDS ORDERED: GLUCOSE GEL 15 GRAM TUBE BUCCAL (05:30)
[2018-07-30 08:36] LABS: ADD MAN DIFF? NO
[2018-07-30 08:38] LABS: ABNORMAL IP MESSAGE 1; BASOPHIL # 0.1 10^3/ul (0.0-0.1); BASOPHILS % 0.2 % (0.0-2.0); HEMATOCRIT 23.9 % (42.0-52.0); LYMPHOCYTES # 1.5 10^3/ul (0.8-2.9); LYMPHOCYTES % 4.9 % (15.0-51.0); MEAN CORPUSCULAR HEMOGLOBIN 26.4 pg (29.0-33.0); MEAN CORPUSCULAR HGB CONC 33.5 g/dl (32.0-37.0); MEAN CORPUSCULAR VOLUME 78.9 fl (82.0-101.0); MEAN PLATELET VOLUME 9.7 fl (7.4-10.4); MONOCYTE # 1.5 10^3/ul (0.3-0.9); MONOCYTES % 5.1 % (0.0-11.0); NEUTROPHIL # 26.4 10^3/ul (1.6-7.5); NEUTROPHILS % 88.8 % (39.0-77.0); PLATELET COUNT 428 10^3/UL (140-415); POSITIVE DIFF @See below; RED BLOOD COUNT 3.03 10^6/ul (4.70-6.10); RED CELL DISTRIBUTION WIDTH 16.1 % (11.5-14.5)
[2018-07-30 08:38] LABS: WHITE BLOOD COUNT 29.7 10^3/ul (4.8-10.8)
[2018-07-30] MEDS: INSULIN ASPART [NOVOLOG] 3 ML PEN SC ×2 (08:46→13:56)
[2018-07-30 08:55] LABS: ALANINE AMINOTRANSFERASE 49 IU/L (13-69); ALBUMIN 2.9 g/dl (3.3-4.9); ALBUMIN/GLOBULIN RATIO 0.67; ALKALINE PHOSPHATASE 402 IU/L (42-121); ANION GAP 8 (5-13); ASPARTATE AMINO TRANSFERASE 667 IU/L (15-46); BILIRUBIN,INDIRECT 0.4 mg/dl (0-1.1); BILIRUBIN,TOTAL 0.4 mg/dl (0.2-1.3); BLOOD UREA NITROGEN 31 mg/dl (7-20); CALCIUM 8.3 mg/dl (8.4-10.2); CARBON DIOXIDE 24 mmol/L (21-31); CHLORIDE 96 mmol/L (97-110); Estimated GFR > 60 mL/min (>60); GLUCOSE 149 mg/dl (70-220); MAGNESIUM 1.8 mg/dl (1.7-2.5); PHOSPHORUS 4.3 mg/dl (2.5-4.9); POTASSIUM 4.4 mmol/L (3.5-5.1); SODIUM 128 mmol/L (135-144); TOTAL PROTEIN 7.2 g/dl (6.1-8.1)
[2018-07-30] MEDS: SUCRALFATE (100 MG/ML) 10ML CUP PO ×2 (09:00→13:25)
[2018-07-30 09:23] LABS: HEMOGLOBIN A1C 6.2 % (0-5.9)
== END 2018-07-30 16:55 | disposition home or self-care (01) | DRG 812 ==
LOC: E/R 11:51 → TEL 14:03
PROVIDERS: Internal Medicine; Pediatrics Neonatal-Perinatal Medicine
PROC: 30233N1 Transfusion of Nonautologous Red Blood Cells into Peripheral Vein, Percutaneous Approach (ICD-10-PCS; principal; 2018-07-29)
DX: D62 Acute posthemorrhagic anemia (principal); C16.2 Malignant neoplasm of body of stomach; E87.1 Hypo-osmolality and hyponatremia; R65.10 Systemic inflammatory response syndrome (SIRS) of non-infectious origin without acute organ dysfunction; I10 Essential (primary) hypertension; E11.9 Type 2 diabetes mellitus without complications; R50.84 Febrile nonhemolytic transfusion reaction; R50.81 Fever presenting with conditions classified elsewhere; Z79.4 Long term (current) use of insulin; Z86.711 Personal history of pulmonary embolism
CPT/HCPCS: 36415; 36430; 71045; 80053; 81001; 81003; 82962; 83036; 83605; 83735; 84100; 84484; 85025; 85610; 85730; 86078; 86850; 86900; 86901; 86920; 87040-91; 87086; 93005; 99285-25